=== PATIENT | male | born 1965 | race Caucasian/White ===

== ENCOUNTER 2018-02-25 09:56 | Emergency (ER) | payer OTHER, SELFPAY ==
[2018-02-25 09:57] VITALS: BP 134/52; PULSE 91; RESP 18; TEMP 36.4; O2SAT 96; BMI 26.7
[2018-02-25 10:05] VITALS: O2SAT 96
--- NOTE | 2018-02-25 10:30 | RAD_ITS ---
STUDY: X-RAY - LEFT KNEE REASON FOR EXAM: Male, 52 years old. Status post fall TECHNIQUE: 4 view(s) of the knee. COMPARISON: None. FINDINGS: Comminuted lateral tibial plateau fracture is noted. No dislocation. Joint effusion is noted. RAD/Knee 4 or More Views IMPRESSION: As above Electronically Signed: Miguel Alexandra DO at 11:26 EST Tel , Service support ,
--- NOTE | 2018-02-25 10:42 | RAD_ITS ---
STUDY: X-RAY - LEFT TIBIA AND FIBULA REASON FOR EXAM: Male, 52 years old. Status post fall TECHNIQUE: 4 view(s) of the tibia and fibula were obtained. COMPARISON: None. FINDINGS: Nondisplaced and mildly comminuted lateral tibial plateau fracture. Remainder of the tibia and fibula are within normal limits RAD/Tibia & Fibula 2 Views IMPRESSION: As above Electronically Signed: Miguel Alexandra DO at 11:27 EST Tel , Service support ,
[2018-02-25 12:16] VITALS: BP 137/84; PULSE 71; RESP 16; O2SAT 98
--- NOTE | 2018-02-25 12:16 | ED.DCSUM_ITS ---
- ER Visit Summary Date of Service: 02/25/18 Chief Complaint: Fall History of Present Illness: The patient is a [address] Gorge Dixon III. He reports that he slipped in the mud and his left leg went laterally and his body went right. He states his left leg popped. His pain is 3 out of 10 at rest and 10 out of 10 with standing. Reports she is unable to put any weight on this leg. He denies any other injury. No blow to the head or loss of consciousness. No neck, back, shoulder, wrist, or hip pain. He is not on blood thinners. Physical Examination: Vitals: Stable. Afebrile. Neck: No vertebral tenderness. Full ROM without difficulty. Cleared by NEXUS criteria. Back: No vertebral tenderness. General: A&O x 3. NAD. Cardiovascular exam: Regular rate and rhythm, no murmur, rub or gallop. Respiratory exam: Chest nontender. No crepitus. Clear to auscultation bila terally. No wheezes or stridor. Abdominal exam: Soft, nontender, nondistended, normal bowel sounds. No pain in RUQ or LUQ specifically. No peritoneal signs. Extremity: Moderate tenderness palpation over the head of the fibula. Severe pain with any range of motion of his knee. Is a 2+ dorsalis pedis pulse. Test Results: Left tib-fib and knee x-rays show a comminuted depressed lateral tibial plateau fracture. Emergency Department Course and Treatment: Patient was treated with [place] and naproxen. He was placed in a knee immobilizer and on crutches. Treatment Plan: I discussed with the patient and his that this will require surgery. They do not want to see an orthopedic surgeon in [place]. His has contacts at [facility] with orthopedics. She is trying to reach them now. Patient will be discharged with [place]. Instructed to follow-up with orthopedic surgeon within 5 days for another exam. He is to be strictly nonweightbearing. Return to the emergency department for any worsening symptoms. Disposition: To home in improved and stable condition. Impression: 1. Fall. 2. Left lateral tibial plateau fracture, depressed. This note was generated with [employer] dictation software. It may contain incorrect words, spelling, and punctuation that were not noted in review of the chart prior to signing ED Disposition - Plan for ED Patient: Disposition: Home or Assisted Living Chief Complaint: Lower Extremity Injury Instructions: ED Fx Knee Prescriptions: Hydrocodone Bitart/Apap 5-325 [[place] 5MG-325MG] 1 tablet PO Q6H PRN PRN 5 Days #20 tablet PRN Reason: Pain Referrals: Gorge Dixon III, MD [Primary Care Provider] - Additional Instructions: Follow up with your Orthopedic Surgeon as soon as possible.
[2018-02-25] MEDS: HYDROcodone Bitartrate/Apap 5/325 Tablet PO (12:21)
[2018-02-25] MEDS: Ibuprofen 600 MG Tablet PO (12:22)
[2018-02-25 12:24] VITALS: BP 137/84; PULSE 66; RESP 16; O2SAT 98
--- NOTE | 2018-02-25 13:32 | ED.RN ---
PT D/C DELAYED DUE TO PT WANTING TO FILL WORKERS COMPWeston EVANGELISTA. [id number]
== END 2018-02-25 13:54 | disposition home or self-care (01) ==
PROVIDERS: Emergency Provider Emergency Medicine; Family Provider Family Medicine; PCP Family Medicine
DX: S82.142A Displaced bicondylar fracture of left tibia, initial encounter for closed fracture (principal); W01.0XXA Fall on same level from slipping, tripping and stumbling without subsequent striking against object, initial encounter; Y93.9 Activity, unspecified; Y92.9 Unspecified place or not applicable
CPT/HCPCS: 73564; 73590; 99285

== ENCOUNTER 2018-04-17 09:52 | Emergency (ER) | payer OTHER, SELFPAY ==
[2018-04-17 09:54] VITALS: BP 97/65; PULSE 116; RESP 17; TEMP 36.8; O2SAT 100; BMI 24.1
--- NOTE | 2018-04-17 10:06 | VDLE_ITS ---
Reason For Study: LLE pain and swelling RIGHT LEFT CFV is compressible, spontaneous, phasic, GSV is normal. competent and demonstrates normal CFV is compressible, spontaneous, phasic, augmentation. competent, and demonstrates normal Procedure augmentation. Exam performed portable in ED. Prox FV is compressible. The exam was diagnostic. MID/Distal FV, POP V, T/P Trunk, PTV and PER A preliminary report was called and/or faxed V are DILATED and NON-COMPRESSIBLE. to Dr. Saenz & ED. Interpretation Summary Acute deep venous thrombosis left mid to distal femoral vein, popliteal vein, tibioperoneal trunk, posterior tibial vein, and peroneal vein. Patent and compressible left great saphenous vein. Normal flow patterns right common femoral vein. Ordering Physician: Marvin Rowell Referring Physician: Gorge Dixon Performed By: Yuko Moseley, SAMAN, RVT
--- NOTE | 2018-04-17 10:09 | ED.VISSUMM ---
- ER Visit Summary Date of Service: 04/17/18 Chief Complaint: Left knee pain History of Present Illness: The patient is a 52 M presents to the emergency department left knee pain. The patient had ORIF of a tibial plateau fracture done 7 weeks ago. The surgery was performed at [facility] by Dr. Bentley. The patient has been doing therapy and recovering without issue. He states that 4 days ago, when he was sleeping, he accidentally twisted his left leg. Since then, he had severe pain and swelling in the posterior aspect of the leg. He states even put pressure on it causes significant pain. He did see his orthopedic surgeon in the office after he had injured it. He states that he had negative x-rays. Since then, the pain is worsened. He states that even putting any attempted extension on the knee causes severe pain. He denies any fevers or chills. He denies any systemic symptoms. Physical Examination: Exam is relatively unremarkable. The patient does have asymmetric edema of the left lower extremity. His pulses are normal. He is tender in the posterior aspect of the knee. His incision is clean, dry, intact. There is no erythema. Test Results: [] Emergency Department Course and Treatment: The patient presents with asymmetric edema of the left lower extremity. He did have recent surgery. His pulses were normal. I did review his x-rays through the [facility] from 3 days ago. These are unremarkable. With his pain, I did want to rule out DVT. Patient underwent ultrasound which does show extensive DVT in the lower extremity. I do feel that the patient is safe for outpatient therapy. He declined any analgesics. His pulses are normal. I discussed the patient with orthopedics at [facility], Dr. Tolentino who is comfortable with Eliquis. I also discussed the patient with Dr. Jacobo, covering for Dr. Moreira the patient's primary care. The patient will be started on Eliquis. He is given his first dose here. He was counseled concerning symptoms and reasons to return. He has had no chest pain or shortness of breath. Patient be discharged home. Treatment Plan: [] Disposition: Discharge Impression: 1. Left lower extremity DVT This note was generated with [employer] software. It may contain incorrect words, spelling, and punctuation that were not noted in review of the chart prior to signing ED Disposition - Plan for ED Patient: Chief Complaint: Lower Extremity Injury Instructions: ED DVT Prescriptions: Apixaban [Eliquis] 5 mg PO BID #74 tab Referrals: Gorge Dixon III, MD [Primary Care Provider] -
[2018-04-17] MEDS: APIXABAN 5 MG TABLET 10 MG PO (11:44)
== END 2018-04-17 11:48 | disposition home or self-care (01) ==
PROVIDERS: Emergency Provider Emergency Medicine; Family Provider Family Medicine; PCP Family Medicine
DX: I82.412 Acute embolism and thrombosis of left femoral vein (principal); I82.432 Acute embolism and thrombosis of left popliteal vein; I82.442 Acute embolism and thrombosis of left tibial vein; I82.492 Acute embolism and thrombosis of other specified deep vein of left lower extremity; X50.1XXA Overexertion from prolonged static or awkward postures, initial encounter; Y93.9 Activity, unspecified; Y92.9 Unspecified place or not applicable; Z98.890 Other specified postprocedural states
CPT/HCPCS: 93971; 99283

== ENCOUNTER 2018-08-26 09:39 | Emergency (ER) | payer OTHER, SELFPAY ==
[2018-08-26 09:40] VITALS: BP 118/87; PULSE 115; RESP 16; TEMP 36.9; O2SAT 97; BMI 24.1
--- NOTE | 2018-08-26 09:51 | VDLE_ITS ---
Reason For Study: Swelling RIGHT LEFT CFV is compressible, spontaneous, phasic, GSV is normal. competent and demonstrates normal CFV is compressible, spontaneous, phasic, augmentation. competent, and demonstrates normal Procedure augmentation. Exam performed portable in ED. Prox to Mid FV is compressible, spontaneous, A preliminary report was called and/or faxed phasic, competent, and demonstrates normal to ED Doctor. augmentation. Acute deep vein thrombosis is noted in the left FV Distal, POP V, T/P Trunk, PER V, PTV. Dilated and non-compressible. Interpretation Summary Acute deep venous thrombosis left distal femoral, popliteal, tibioperoneal trunk, peroneal, and posterior tibial veins. Patent and compressible left great saphenous vein. Normal flow patterns right common femoral vein. Ordering Physician: Mayela Romano Referring Physician: EDITA Dixon M.D. Performed By: Yamini Quinonez RVT
--- NOTE | 2018-08-26 10:11 | ED.VISSUMM ---
- ER Visit Summary Date of Service: 08/26/18 Chief Complaint: [Left leg discomfort with concern for DVT History of Present Illness: The patient is a 53 M [presents to the emergency department with discomfort in his left leg for several days. Patient states he also just does not feel well and that he just does not feel he has much energy. Patient was taken off of Eliquis early in July after being on it for 3 months related to a left leg DVT. Patient developed a DVT after he had surgery to repair a left tibial plateau fracture in April of this year. Patient currently rehabbing his left leg. Patient states that he feels similarly to when he was diagnosed with his blood clot. He denies any chest pain. Patient has some mild shortness of breath but he is not sure if he is just more fatigued rather than short of breath.] Physical Examination: [HEENT-PERRLA, EOMI. Cranial nerves II through XII grossly intact. TMs clear. Mucous membranes moist. No adenopathy. Cardiovascular-regular rate and rhythm without murmur or ectopy Lungs-clear to auscultation, chest wall stable without crepitus or subcu emphysema Abdomen-normoactive bowel sounds, soft, nontender, no rebound or rigidity, no peritoneal signs. Extremities-intact ?4, normal range of motion, normal pulses, atraumatic. Left leg-patient has some increased varicosities of the left leg compared to the right. There is some mild edema of the left leg compared to the right. No erythema or warmth noted. Patient has normal femoral, popliteal, dorsal pedal, and posterior tibial pulses. Normal cap refill. No ropes or cords palpated. Negative Homans sign.] Test Results: ['s duplex of the left leg was obtained which showed DVT that appears acute of the distal femoral vein and down into the calf. Patient had a CBC with differential and chemistries obtained were unremarkable. A CT of the chest was obtained given the tachycardia and the complaint of some dyspnea. Patient had no evidence of PE or dissection. Patient was noted to have a small right pleural effusion and a nodule in the right lower lobe for which they recommended radiologic follow-up. The nodule measured 2 x 1.5 cm.] Emergency Department Course and Treatment: [Patient was given Eliquis in the emergency department and will be given a prescription for Eliquis] Treatment Plan: [Patient will be given a prescription for Eliquis and advised to follow-up with primary care physician within next 5 to 7 days. Patient advised to return if chest pain, increasing shortness of breath, or condition worsen anyway.] Disposition: [Discharged home stable condition] Impression: [Left lower extremity DVT] This note was generated with [employer] dictation software. It may contain incorrect words, spelling, and punctuation that were not noted in review of the chart prior to signing ED Disposition - Plan for ED Patient: Referrals: Gorge Dixon III, MD [Primary Care Provider] -
--- NOTE | 2018-08-26 10:27 | CT_ITS ---
STUDY: CTA CHEST REASON FOR EXAM: Male, 53 years old. General fatigue. No deep venous thrombosis. RADIATION DOSAGE (If Supplied By Facility): CTDIvol = ( 10.91 ) mGy, DLP = ( 536.50 ) mGycm TECHNIQUE: The examination was performed with the intravenous administration of 100 IV Isovue 370. Post-processing of the angiographic images was performed, with multiplanar reformation and 3D reconstruction. Individualized dose optimization techniques were used for this CT. COMPARISON: None. FINDINGS: Normal enhancement of the main pulmonary artery and right and left pulmonary arteries. Normal enhancement of the bilateral peripheral pulmonary arteries. There is no demonstrated pulmonary embolism. Normal thoracic aorta and visualized great vessels. There is no demonstrated aortic dissection. Normal heart and pericardium. Normal mediastinum. Normal hilar regions. Normal visualized trachea and bronchi. The lungs are well expanded. There is a small right pleural effusion with right basilar atelectasis. There is evidence of a 2 cm x 1.5 cm pleural-based nodule in the right lower lobe. This may represent round atelectasis. Radiographic follow-up is recommended. Normal chest wall structures. There are degenerative changes of thoracic spine. 1 cm cyst in the anterior aspect of the right lobe of the liver. CT/CTA Chest W/WO Contrast IMPRESSION: Small right pleural effusion with underlying atelectasis. 2 cm x 1.5 cm focal based nodule in the posterior right lower lobe. Radiographic follow-up is recommended. Electronically Signed: Costa Gallegos, at 11:34 EDT , Service support ,
[2018-08-26 11:01] LABS: Anion Gap 5 (5-15); BUN 12 mg/dL (7-18); BUN/Creat Ratio 11.1 RATIO (10-20); Chloride 108 mmol/L (98-107); Creatinine, Serum 1.08 mg/dL (0.70-1.30); EST Glomerular Filtration Rate 75 mL/min (>60); Est Glom Filt Rate - Afr Amer 91 mL/min (>60); Estimated Creatinine Clearance 104.94 ml/min; Glucose 93 mg/dL (74-106); Potassium 4.5 mmol/L (3.5-5.1); Sodium Level 141 mmol/L (136-145)
[2018-08-26 11:14] LABS: Absolute Lymphocyte Count 1.33 X10^3/ul (0.83-4.51); Absolute Neutrophil Count 4.9 X10^3/uL (2.0-7.7); Basophil# 0.02 X10^3/uL; Basophil% 0.3 % (0-1); Eosinophil# 0.06 X10^3/uL; Eosinophils% 0.8 % (0-5); Hematocrit 42.5 % (40-54); Hemoglobin 14.3 g/dl (13.0-16.5); Lymphocyte # 1.33 X10^3/ul (4.0); Lymphocyte % 18.8 % (19-41); Mean Corp Hgb Conc 33.6 g/gl (32-36); Mean Corpuscular Hgb 28.7 pg (27.0-32.0); Mean Corpuscular Volume 85.2 fL (80-94); Monocyte# 0.78 X10^3/uL; Neutrophil # 4.88 X10^3/uL (2.7-7.7); Platelet Count 212 K/mm3 (150-450); RBC Distribution Width CV 15.3 % (11.6-14.6); RBC Distribution Width SD 47.9 fl (35.1-43.9); Red Blood Count 4.99 M/mm3 (4.6-6.2); White Blood Count 7.1 K/mm3 (4.4-11.0)
[2018-08-26 11:18] LABS: POSITIVE COUNT NO; POSITIVE DIFFERENTIAL NO; POSITIVE MORPHOLOGY NO
--- NOTE | 2018-08-26 11:42 | ED.RN ---
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 ORDER FOR DRUG CHANGED TO 5MG INSTEAD OF 10MG.
[2018-08-26 11:43] VITALS: BP 128/72; PULSE 82; RESP 16
[2018-08-26] MEDS: APIXABAN 5 MG TABLET PO (11:43)
--- NOTE | 2018-08-26 12:02 | ED.DEP ---
ED Disposition - Plan for ED Patient: Instructions: ED DVT Prescriptions: Apixaban [Eliquis] 5 mg PO BID #74 tab Referrals: Gorge Dixon III, MD [Primary Care Provider] - 5-7 Days
== END 2018-08-26 12:07 | disposition home or self-care (01) ==
PROVIDERS: Emergency Provider Emergency Medicine; Family Provider Family Medicine; PCP Family Medicine
DX: I82.412 Acute embolism and thrombosis of left femoral vein (principal); I82.432 Acute embolism and thrombosis of left popliteal vein; I82.442 Acute embolism and thrombosis of left tibial vein; I82.890 Acute embolism and thrombosis of other specified veins; I83.92 Asymptomatic varicose veins of left lower extremity; J90 Pleural effusion, not elsewhere classified; R91.1 Solitary pulmonary nodule; Z86.718 Personal history of other venous thrombosis and embolism
CPT/HCPCS: 71275; 80048; 85025; 93971; 99284; Q9967; A4216

== ENCOUNTER 2020-09-02 11:54 | Inpatient (IN) | payer OTHER, SELFPAY ==
[2020-09-02] VITALS (27 sets, daily range): BP systolic 92–157; BP diastolic 48–93; PULSE 87–140; RESP 18–26; TEMP 36.4–37; O2SAT 91–100; BMI 26.4; BMI 25.0
--- NOTE | 2020-09-02 12:53 | EKG12_ITS ---
Test Reason : SOB Blood Pressure : / mmHG Vent. Rate : 138 BPM Atrial Rate : 352 BPM P-R Int : 000 ms QRS Dur : 100 ms QT Int : 330 ms P-R-T Axes : 263 -44 151 degrees QTc Int : 499 ms Atrial flutter with variable A-V block Left axis deviation Abnormal ECG Confirmed by MEDINA DURAN, GILLIAN ([id number]), department helper ÁLVARO SCHMITT ([id number]) on 09/03/2020 10:06:34 AM Referred By: ALEX Confirmed By:GILLIAN HANEY MD
--- NOTE | 2020-09-02 12:55 | EX.ED.DYSGE1 ---
HPI History of Present Illness Chief Complaint: Fatigue Narrative Narrative: 55-year-old male presenting with generalized weakness and fatigue. Patient states he started having symptoms of COVID-19 about 11 days ago. He was diagnosed on the sixth at the [facility] urgent care. He states that he has decreased p.o. intake with some nausea. He denies any chest pain has mild shortness of breath. He no longer has a fever. He lost his sense of taste. He states I am just wiped out. He states his only medical history is history of blood clots. He is on Eliquis for this. He denies chest pain. [facility] Medical History DVT (deep venous thrombosis) Home Medications apixaban 5 mg PO BID #74 tab 08/26/18 [Rx Last Taken 09/02/20] Allergy/AdvReac Type Severity Reaction Status Date / Time No Known Allergies Allergy Verified 09/02/20 12:00 Social History Smoking Status: Never smoker ROS ROS ED Constitutional Constitutional ED: Reports chills, fever(s) and other Details: Generalized weakness ; Denies sweats Eyes Eyes: Denies blurry vision or change in vision ENT ENT ED: Denies ear pain, rhinorrhea or sore throat Cardiovascular Cardiovascular: Reports racing heartbeat; Denies chest pain or palpitations Respiratory/Chest Respiratory/Chest: Reports dyspnea and dyspnea on exertion; Denies cough or sputum Gastrointestinal Gastrointestinal: Reports nausea; Denies abdominal pain, constipation, diarrhea or vomiting Genitourinary Genitourinary ED: Denies dysuria, hematuria or urinary frequency Musculoskeletal Musculoskeletal: Reports myalgias; Denies arthralgias or neck pain Integumentary Denies abscess, Abrasions or rash Neurologic Neurologic: Denies headache(s), paresthesias or weakness Psychiatric Psychiatric: Denies anxiety, depression, suicidal ideation or suicidal thoughts Endocrine Endocrinology: Denies polydipsia or polyuria EXAM Physical Exam Const Vital Signs: 09/02/20 11:57 09/02/20 12:01 09/02/20 13:34 Temperature 97.6 F L 98.1 F Temperature Source Oral Oral Pulse Rate 140 H 140 H 133 H Respiratory Rate 26 H 21 H 22 H Blood Pressure 141/83 H 133/76 H 105/69 Blood Pressure Mean 102 95 81 Pulse Ox 97 96 99 Oxygen Delivery Method Room Air Room Air Room Air 09/02/20 13:36 09/02/20 14:52 Temperature 98.1 F 98.1 F Temperature Source Oral Oral Pulse Rate 131 H Respiratory Rate 20 H Blood Pressure 126/81 H Blood Pressure Mean 96 Pulse Ox 96 Oxygen Delivery Method Room Air General Appearance ED: Negative for pallor HEENT Reports normocephalic, head/scalp atraumatic and dry mucous membranes Negative for trauma Mouth ED: Yes dry mucous membranes Mouth: dry mucous membranes Eyes PERRL and EOMs intact bilaterally General Eye ED: Negative for scleral icterus Neck no lymphadenopathy and supple Chest Wall inspection of chest normal and palpation of chest normal Resp normal respiratory effort Effort and Inspection: Negative for retractions Auscultation: diminished lung sounds bilateral and diffuse; Negative for wheezes Cardio regular rate and regular rhythm GI normal to inspection, nondistended, normoactive bowel sounds and non-distended Auscultation: normoactive bowel sounds Palpation: soft Narrative: Deferred Back/Spine no CVA tenderness General Back: Negative for CVA tenderness Cervical Spine: Negative for cervical spine tenderness Extremity normal to inspection General Extremety ED: Yes edema and tenderness General Extremity: edema Neuro oriented x3 and CN's II-XII intact bilaterally Sensorium / Orientation: alert Motor Exam: strength 5/5 throughout Psych mental status grossly normal Attitude: No agitated Skin no rashes or lesions noted and no wounds General Skin Exam: Negative for jaundice or pallor MDM MDM MDM Narrative Medical decision making narrative: Patient presenting with Covid symptoms he states for the last 11 days. He was diagnosed about 7 days ago. He states that he is been doing poorly at home. He does not complains of significant shortness of breath or chest pain. When I initially examined the patient he was noted to be tachycardic in the 130s and hypoxic into the 80s and states that he had just walked a couple of feet to the counter patient's EKG appears to be irregular and tachycardic at 138 and appears to be consistent with atrial fibrillation as interpreted by myself. Patient states he has no history of this. Chest x-ray is interpreted by myself shows bilateral interstitial infiltrates and radiology does agree. CTA as interpreted by radiology shows bilateral groundglass opacities consistent with COVID-19. Patient's CBC does not show leukocytosis. INR 1.6, PT 18.3, APTT. 35.1 renal function is normal although there is some prerenal azotemia present. He was given 500 cc of IV fluids. Lactic acid is 1.8. Troponin is negative. Procalcitonin 0.8. UA shows small leukocyte esterase and rare bacteria. This does not appear to be contaminated. For patient's heart rhythm he was given Cardizem 20 mg IV. He is already anticoagulated. Discussed patient with hospitalist given significant tachycardia and hypoxia. She recommended culturing the urine which has been done. Patient admitted in stabilized condition. Impression: 1. COVID-19 pneumonia 2. Hypoxia 3. New onset A. fib Lab Data Labs: Laboratory Results - last 24 hr 09/02/20 09/02/20 09/02/20 13:25 13:25 13:25 WBC 8.3 RBC 5.41 Hgb 16.0 Hct 46.4 MCV 85.8 MCH 29.6 MCHC 34.5 RDW Std Deviation 38.7 RDW Coeff of Ewa 12.4 Plt Count 284 MPV 9.7 Immature Gran % (Auto) 0.700 Neut % (Auto) 81.2 H Lymph % (Auto) 13.0 L Jackson % (Auto) 4.6 Eos % (Auto) 0.0 Baso % (Auto) 0.5 Absolute Neuts (auto) 6.7 Absolute Lymphs (auto) 1.08 Nucleated RBC % 0 PT 18.3 H INR 1.6 APTT 35.1 Sodium 139 Potassium 3.4 L Chloride 106 Carbon Dioxide 23.0 Anion Gap 10 BUN 20 H Creatinine 0.95 Estim Creat Clear Calc 116.49 Est GFR (MDRD) Af Amer 105 Est GFR (MDRD) Non-Af 87 BUN/Creatinine Ratio 21.1 H Glucose 92 Lactic Acid Calcium 8.5 Total Bilirubin 0.70 AST 26 ALT 22 Alkaline Phosphatase 81 Troponin I < 0.015 Total Protein 7.1 Albumin 2.8 L Globulin 4.3 H Albumin/Globulin Ratio 0.7 L Procalcitonin Urine Color Urine Clarity Urine pH Ur Specific [place] Urine Protein Urine Glucose (UA) Urine Ketones Urine Occult Blood Urine Nitrite Urine Bilirubin Urine Urobilinogen Ur Leukocyte Esterase Urine RBC Urine WBC Ur Squamous Epith Cells Urine Bacteria Urine Mucus 0509/02/20 09/02/20 13:25 13:25 14:50 WBC RBC Hgb Hct MCV MCH MCHC RDW Std Deviation RDW Coeff of Ewa Plt Count MPV Immature Gran % (Auto) Neut % (Auto) Lymph % (Auto) Jackson % (Auto) Eos % (Auto) Baso % (Auto) Absolute Neuts (auto) Absolute Lymphs (auto) Nucleated RBC % PT INR APTT Sodium Potassium Chloride Carbon Dioxide Anion Gap BUN Creatinine Estim Creat Clear Calc Est GFR (MDRD) Af Amer Est GFR (MDRD) Non-Af BUN/Creatinine Ratio Glucose Lactic Acid 1.8 Calcium Total Bilirubin AST ALT Alkaline Phosphatase Troponin I Total Protein Albumin Globulin Albumin/Globulin Ratio Procalcitonin 0.08 Urine Color Yellow Urine Clarity Sl. Cloudy Urine pH 6.0 Ur Specific [place] 1.015 Urine Protein 30 H Urine Glucose (UA) Normal Urine Ketones 150 A* Urine Occult Blood 25 H Urine Nitrite Negative Urine Bilirubin 1 H Urine Urobilinogen 4 H Ur Leukocyte Esterase 25 H Urine RBC 0-5 SEEN Urine WBC 0-5 SEEN Ur Squamous Epith Cells 0 SEEN Urine Bacteria RARE Urine Mucus 0 SEEN Radiography Diagnostic Testing: Radiology Impression Chest X-Ray 09/02/20 13:10 IMPRESSION: Subtle patchy interstitial opacifications in the lower halves of both lung roblero. Differential as described above. Small left pleural effusion Electronically Signed: Evaristo Cortez MD at 13:21 EDT , Service support , Chest CTA 09/02/20 14:22 IMPRESSION: 1. No central or segmental pulmonary embolism. 2. Multilobar reticular and groundglass opacities with imaging features commonly reported with COVID pneumonia. Electronically Signed: Sky Bales MD ([place]) at 14:59 EDT , Service support , Discharge Plan Triage Chief Complaint: Fatigue ED Provider: Sukhwinder Alvarez Dx/Rx/DC Orders Primary Care Provider: Gorge Dixon III
--- NOTE | 2020-09-02 13:10 | RAD_ITS ---
STUDY: X-RAY CHEST REASON FOR EXAM: Male, 55 years old. Worsening shortness of breath TECHNIQUE: Single AP portable view of the chest. COMPARISON: None. FINDINGS: EKG leads overlie the chest Lungs are expanded with subtle patchy opacifications in both lower lung roblero. This could be seen with pneumonitis, bronchitis, or Covid pneumonia could have this appearance. There is a small left pleural effusion. Normal size heart. Normal mediastinum and felicity. Normal visualized pulmonary arteries. Normal visualized aortic arch and descending thoracic aorta. Normal visualized thoracic spine. Normal visualized ribs, clavicles, and shoulders. There is no demonstrated abnormality of the visualized soft tissue structures of the upper abdomen. RAD/Chest 1 View (Portable) IMPRESSION: Subtle patchy interstitial opacifications in the lower halves of both lung roblero. Differential as described above. Small left pleural effusion Electronically Signed: Evaristo Cortez MD at 13:21 EDT , Service support ,
[2020-09-02 13:55] LABS: International Normalized Ratio 1.6; Prothrombin Time (Protime)PT. 18.3 SECONDS (11.7-14.9)
[2020-09-02 13:56] LABS: Partial Thromboplast Time 35.1 Seconds (24.1-36.2)
[2020-09-02 13:57] LABS: Absolute Lymphocyte Count 1.08 X10^3/uL (0.83-4.51); Absolute Neutrophil Count 6.7 X10^3/uL (2.0-7.7); Basophil# 0.04 X10^3/uL; Basophil% 0.5 % (0-1); Hematocrit 46.4 % (40-54); Lymphocyte # 1.08 X10^3/ul (0.83-4.51); Mean Corp Hgb Conc 34.5 g/dL (32-36); Mean Corpuscular Hgb 29.6 pg (27.0-32.0); Mean Corpuscular Volume 85.8 fL (80-94); Mean Platelet Vol. 9.7 fl (6.2-12.0); Monocyte# 0.38 X10^3/uL; Monocyte% 4.6 % (0-10); NRBC Flagged by Analyzer 0 % (0-5); Neutrophil # 6.72 X10^3/uL (2.7-7.7); Neutrophil % 81.2 % (47-70); POSITIVE MORPHOLOGY YES; Platelet Count 284 K/mm3 (150-450); RBC Distribution Width CV 12.4 % (11.6-14.6); RBC Distribution Width SD 38.7 fl (35.1-43.9); Red Blood Count 5.41 M/mm3 (4.6-6.2); White Blood Count 8.3 K/mm3 (4.4-11.0)
[2020-09-02 14:04] LABS: ALB/GLOB Ratio 0.7 RATIO (0.9-2.4); AST(SGOT) 26 U/L (15-37); Alanine Aminotransfer ALT/SGPT 22 U/L (16-61); Albumin, Serum 2.8 g/dL (3.2-5.0); Alkaline Phosphatase 81 U/L (45-117); Anion Gap 10 (5-15); BUN 20 mg/dL (7-18); BUN/Creat Ratio 21.1 RATIO (10-20); Calcium,Total 8.5 mg/dL (8.5-10.1); Chloride 106 mmol/L (98-107); Creatinine, Serum 0.95 mg/dL (0.70-1.30); EST Glomerular Filtration Rate 87 mL/min (>60); Est Glom Filt Rate - Afr Amer 105 mL/min (>60); Estimated Creatinine Clearance 116.49 ml/min; Globulin 4.3 g/dL (2.2-4.2); Glucose 92 mg/dL (74-106); Potassium 3.4 mmol/L (3.5-5.1); Protein, Total 7.1 g/dL (6.4-8.2); Sodium Level 139 mmol/L (136-145)
[2020-09-02 14:09] LABS: Lactic Acid 1.8 mmol/L (0.4-1.9)
[2020-09-02 14:20] LABS: Differential Indicated SCAN CRITERIA MET
--- NOTE | 2020-09-02 14:22 | CT_ITS ---
STUDY: CTA CHEST REASON FOR EXAM: Male, 55 years old. dyspnea RADIATION DOSAGE (If Supplied By Facility): CTDIvol = ( 13.63 ) mGy, DLP = ( 523.75 ) mGycm TECHNIQUE: The examination was performed with the intravenous administration of IV 100mL Isovue-370. Post-processing of the angiographic images was performed, with multiplanar reformation and 3D reconstruction. Individualized dose optimization techniques were used for this CT. COMPARISON: Chest x-ray from earlier today FINDINGS: Normal enhancement of the main pulmonary artery and right and left pulmonary arteries. Normal enhancement of the bilateral peripheral pulmonary arteries. There is no demonstrated pulmonary embolism. Normal thoracic aorta and visualized great vessels. There is no demonstrated aortic dissection. Normal heart and pericardium. Normal mediastinum. Normal hilar regions. Normal visualized trachea and bronchi. Localized reticulation and groundglass opacities in the posterior bilateral upper lobes, right middle lobe, lingula and bilateral lower lobes. No cavitating process. Mild atelectasis in the posterior costophrenic angles. No sizable effusion. Normal pleura. Normal chest wall structures. Normal osseous structures. Normal visualized upper abdomen. CT/CTA Chest W/WO Contrast IMPRESSION: 1. No central or segmental pulmonary embolism. 2. Multilobar reticular and groundglass opacities with imaging features commonly reported with COVID pneumonia. Electronically Signed: Sky Bales MD (Brooks) at 14:59 EDT , Service support ,
[2020-09-02 14:27] LABS: Procalcitonin 0.08 ng/mL (0.00-0.09)
[2020-09-02 15:04] LABS: Mucous, Urine 0 SEEN /hpf (<or=2+); Squamous Epithelial Cells - UA 0 SEEN /hpf (0-5)
--- NOTE | 2020-09-02 15:10 | HP.PCM.HOS_ITS ---
HPI - General General Date of Admission: 09/02/20 HPI Narrative JENNY GUERRA, is a 55 M who presents with a complaint of fatigue. He was diagnosed with covid 11 days ago, and says he has been feeling weak since then. He feels very lethargic and is unable to do much for himself. He denies any fever but admits to a cough which is nonproductive as well as shortness of breath which he thinks is better than previously. He denies any nausea vomiting but admits to anorexia and states he has not eaten much over the last few days but has been trying to drink water and keep hydrated. Review of systems was otherwise negative. Vitals showed Temp of 98.1F, with MS of 131, RR of 20 and sats of 96% on room air. He was tachycardic and tachypneic. CTA of the chest was negative for PE but showed bilateral opacities. His HR went up to the 140s when getting up. EKG showed probable afib, but when he lay back down, HR went down. - CBC was unremarkable, and BMP was also uremarkable. He is being admitted to be managed for debility and hypoxia due to covid 19 infection as well as new onset afib. [facility] Medical History DVT (deep venous thrombosis) Left tibial fracture Home Medications apixaban 5 mg PO BID #74 tab 08/26/18 [Rx Last Taken 09/02/20] Allergy/AdvReac Type Severity Reaction Status Date / Time No Known Allergies Allergy Verified 09/02/20 12:00 Surgical History (Updated 09/02/20 @ 16:29 by Yamini Fuentes) History of tonsillectomy and adenoidectomy Social History Smoking Status: Never smoker ROS Constitutional Constitutional: Reports anorexia, fatigue, malaise and weakness ENT HEENT: Denies abnormal hearing, dysphagia, nasal discharge or sore throat Cardiovascular Cardiovascular: Reports dyspnea on exertion, palpitations and rapid heart rate; Denies chest pain, lightheadedness, orthopnea or paroxysmal nocturnal dyspnea Respiratory/Chest Respiratory/Chest: Reports cough, shortness of breath at rest and shortness of breath with exertion; Denies productive cough Gastrointestinal Gastrointestinal: Reports abdominal pain; Denies constipation, diarrhea, dyspepsia, loose stools, nausea or vomiting Genitourinary Genitourinary: Denies burning urination or difficulty urinating Musculoskeletal Musculoskeletal: Denies arthralgias Psychiatric Psychiatric: Denies anxiety Endocrine Endocrinology: Denies change in body appearance Hematologic/Lymphatic Hematologic/Lymphatic: Denies anemia Vital Signs Vital Signs Vital Signs: 09/02/20 11:57 09/02/20 12:01 09/02/20 13:34 Temperature 97.6 F L 98.1 F Temperature Source Oral Oral Pulse Rate 140 H 140 H 133 H Respiratory Rate 26 H 21 H 22 H Blood Pressure 141/83 H 133/76 H 105/69 Blood Pressure Mean 102 95 81 Pulse Ox 97 96 99 Oxygen Delivery Method Room Air Room Air Room Air 09/02/20 13:36 09/02/20 14:52 Temperature 98.1 F 98.1 F Temperature Source Oral Oral Pulse Rate 131 H Respiratory Rate 20 H Blood Pressure 126/81 H Blood Pressure Mean 96 Pulse Ox 96 Oxygen Delivery Method Room Air Physical Exam Const alert and oriented x3 Orientation / Consciousness: lethargic HEENT normocephalic, head/scalp atraumatic and hearing grossly normal bilaterally; Negative for moist oral mucous membranes HEENT Narrative: dry mucosal membrane Eyes PERRL, EOMs intact bilaterally and conjunctivae normal Neck No no lymphadenopathy Resp No normal respiratory effort Resp Narrative: tachypneic, bilateral crackles. Cardio Negative for regular rate or regular rhythm Cardio Narrative: tachycardic, afib. GI normal to inspection, nondistended, normoactive bowel sounds, soft to palpation, non-tender and non-distended Extremity normal to inspection, full ROM and no clubbing, cyanosis or edema Peripheral Pulses: Yes pulses 2+ throughout Skin no rashes or lesions noted Neuro oriented x3 Sensorium / Orientation: alert Psych affect normal Lab / Micro Data Result Diagrams: 09/03/20 03:40 09/03/20 03:40 Labs: Laboratory Results - last 24 hr 09/02/20 09/02/20 09/02/20 13:25 13:25 13:25 WBC 8.3 RBC 5.41 Hgb 16.0 Hct 46.4 MCV 85.8 MCH 29.6 MCHC 34.5 RDW Std Deviation 38.7 RDW Coeff of Ewa 12.4 Plt Count 284 MPV 9.7 Immature Gran % (Auto) 0.700 Neut % (Auto) 81.2 H Lymph % (Auto) 13.0 L [place] % (Auto) 4.6 Eos % (Auto) 0.0 Baso % (Auto) 0.5 Absolute Neuts (auto) 6.7 Absolute Lymphs (auto) 1.08 Nucleated RBC % 0 PT 18.3 H INR 1.6 APTT 35.1 Sodium 139 Potassium 3.4 L Chloride 106 Carbon Dioxide 23.0 Anion Gap 10 BUN 20 H Creatinine 0.95 Estim Creat Clear Calc 116.49 Est GFR (MDRD) Af Amer 105 Est GFR (MDRD) Non-Af 87 BUN/Creatinine Ratio 21.1 H Glucose 92 Lactic Acid Calcium 8.5 Total Bilirubin 0.70 AST 26 ALT 22 Alkaline Phosphatase 81 Troponin I < 0.015 Total Protein 7.1 Albumin 2.8 L Globulin 4.3 H Albumin/Globulin Ratio 0.7 L Procalcitonin 09/02/20 09/02/20 13:25 13:25 WBC RBC Hgb Hct MCV MCH MCHC RDW Std Deviation RDW Coeff of Ewa Plt Count MPV Immature Gran % (Auto) Neut % (Auto) Lymph % (Auto) [place] % (Auto) Eos % (Auto) Baso % (Auto) Absolute Neuts (auto) Absolute Lymphs (auto) Nucleated RBC % PT INR APTT Sodium Potassium Chloride Carbon Dioxide Anion Gap BUN Creatinine Estim Creat Clear Calc Est GFR (MDRD) Af Amer Est GFR (MDRD) Non-Af BUN/Creatinine Ratio Glucose Lactic Acid 1.8 Calcium Total Bilirubin AST ALT Alkaline Phosphatase Troponin I Total Protein Albumin Globulin Albumin/Globulin Ratio Procalcitonin 0.08 Radiology Impression Chest X-Ray 09/02/20 13:10 IMPRESSION: Subtle patchy interstitial opacifications in the lower halves of both lung roblero. Differential as described above. Small left pleural effusion Electronically Signed: Evaristo Cortez MD at 13:21 EDT , Service support , Chest CTA 09/02/20 14:22 IMPRESSION: 1. No central or segmental pulmonary embolism. 2. Multilobar reticular and groundglass opacities with imaging features commonly reported with COVID pneumonia. Electronically Signed: Sky Bales MD (Brooks) at 14:59 EDT , Service support , Assessment & Plan Assessment/Plan (1) Acute respiratory failure with hypoxia: (2) Afib: (3) COVID-19: PLAN: #Acute hypoxic respiratory failure due to covid 19 infection * admit to COVID unit * since symptoms started 11 days ago, I am unsure if he will need remdesivir * start IV decadrone. Breathing treatment and bronchodilators. Titrate oxygen to maintain saturation above 90%. * Consult critical care and ID. * #New onset A. fib * Patient has been tachycardic up into the 140s on admission. * CT of the chest was negative for PE. He does have a history of PE and has been anticoagulated with Eliquis * Given a dose of Cardizem in the ED. Will start on p.o. metoprolol. If annalise galindo remains tachycardic, will likely need Cardizem drip. * Also hydrated with IV fluids as patient is dehydrated. * #Hypokalemia: Potassium is 3.4. Replace DVT prophylaxis: On Eliquis as stated above CODE STATUS: Full code * Patient counseled about different between full code, DNR CCA and DNRCC. Patient elects to be full code. * Total [id number] time-17 minutes.
[2020-09-02 15:18] LABS: Color, Urine Yellow (Yellow); Glucose, Dipstick Normal (Normal); Leukocyte Esterase-Dipstick 25 /ul (Negative); Nitrite-Dipstick Negative (Negative); Occult Blood-Urine 25 /ul (Negative); Protein-Dipstick 30 mg/dl (Negative); Specific Gravity, Urine 1.015 (1.002-1.030); Urine Clarity Sl. Cloudy (Clear); Urine Urobilinogen 4 mg/dl (Normal)
[2020-09-02 15:24] LABS: Urine Bilirubin Dipstick 1 mg/dL (Negative)
[2020-09-02 15:25] LABS: Ketone-Dipstick 150 mg/dl (Negative)
[2020-09-02 15:26] LABS: White Blood Cells 0-5 SEEN /hpf (0-5)
[2020-09-02 15:27] LABS: Bacteria RARE /hpf (None Seen); Red Blood Cells-Urine 0-5 SEEN /hpf (0-5)
[2020-09-02] MEDS: dilTIAZem 25 MG/5 ML Vial 20 MG IV BOLUS (15:35)
[2020-09-02] MEDS: 0.9% Normal Saline 1,000 ML 150 ML IV (16:36)
[2020-09-02] MEDS: Metoprolol(XL)Succ 25 MG Tablet PO (16:36)
[2020-09-02] MEDS: Ondansetron 4 MG/2 ML Vial IV (18:05)
[2020-09-02] MEDS: 0.9% Normal Saline 1,000 ML 125 ML IV (18:46)
[2020-09-02 19:37] LABS: Absolute Lymphocyte Count 0.95 X10^3/uL (0.83-4.51); Absolute Neutrophil Count 6.2 X10^3/uL (2.0-7.7); Basophil# 0.02 X10^3/uL; Basophil% 0.3 % (0-1); Hematocrit 42.6 % (40-54); Hemoglobin 14.5 g/dL (13.0-16.5); Lymphocyte # 0.95 X10^3/ul (0.83-4.51); Lymphocyte % 12.5 % (19-41); Mean Corpuscular Hgb 29.4 pg (27.0-32.0); Mean Corpuscular Volume 86.2 fL (80-94); Mean Platelet Vol. 9.6 fl (6.2-12.0); Monocyte# 0.38 X10^3/uL; NRBC Flagged by Analyzer 0 % (0-5); Neutrophil # 6.21 X10^3/uL (2.7-7.7); Neutrophil % 81.5 % (47-70); POSITIVE MORPHOLOGY YES; Platelet Count 290 K/mm3 (150-450); RBC Distribution Width CV 12.3 % (11.6-14.6); RBC Distribution Width SD 38.8 fl (35.1-43.9); Red Blood Count 4.94 M/mm3 (4.6-6.2); White Blood Count 7.6 K/mm3 (4.4-11.0)
[2020-09-02 19:39] LABS: Differential Indicated SCAN CRITERIA MET
[2020-09-02 19:48] LABS: D-Dimer Quantitative (DVT/PE) 0.86 FEU/ug/m (0.27-0.49)
[2020-09-02 19:50] LABS: Lactic Acid 1.7 mmol/L (0.4-1.9)
[2020-09-02 19:51] LABS: ALB/GLOB Ratio 0.7 RATIO (0.9-2.4); AST(SGOT) 24 U/L (15-37); Alanine Aminotransfer ALT/SGPT 20 U/L (16-61); Albumin, Serum 2.6 g/dL (3.2-5.0); Alkaline Phosphatase 73 U/L (45-117); Anion Gap 9 (5-15); BUN 18 mg/dL (7-18); BUN/Creat Ratio 19.2 RATIO (10-20); Chloride 109 mmol/L (98-107); Creatinine, Serum 0.94 mg/dL (0.70-1.30); EST Glomerular Filtration Rate 88 mL/min (>60); Est Glom Filt Rate - Afr Amer 107 mL/min (>60); Estimated Creatinine Clearance 114.91 ml/min; Globulin 3.7 g/dL (2.2-4.2); Glucose 93 mg/dL (74-106); Potassium 3.3 mmol/L (3.5-5.1); Protein, Total 6.3 g/dL (6.4-8.2); Sodium Level 140 mmol/L (136-145)
[2020-09-02 20:02] LABS: Differential Comment SCANNED
[2020-09-02 20:12] LABS: BNP,B-Type NATRIURETIC PEPTIDE 74.4 pg/mL (0-100)
[2020-09-02] MEDS: Acetaminophen 325 MG Tablet 650 MG PO (21:20)
[2020-09-02] MEDS: guaiFENesin 10 ML UDC (200MG/10ML) 20 ML PO (21:20)
[2020-09-02] MEDS: APIXABAN 5 MG TABLET PO (21:20)
[2020-09-02] MEDS: Potassium Chloride Oral Tablet 20 MEQ 40 MEQ PO (21:20)
[2020-09-02] MEDS: 0.9% Saline Lock 10 ML Syringe IV (22:00)
[2020-09-03] VITALS (31 sets, daily range): BP systolic 95–133; BP diastolic 42–69; PULSE 81–99; RESP 17–24; TEMP 36.6–37; O2SAT 93–95; BMI 25.0
[2020-09-03] MEDS: 0.9% Normal Saline 1,000 ML 125 ML IV (03:00)
[2020-09-03] MEDS: 0.9% Saline Lock 10 ML Syringe IV ×4 (03:38→20:50)
[2020-09-03 03:51] LABS: Absolute Lymphocyte Count 0.92 X10^3/uL (0.83-4.51); Basophil# 0.02 X10^3/uL; Basophil% 0.3 % (0-1); Eosinophil# 0.01 X10^3/uL; Eosinophils% 0.1 % (0-5); Hematocrit 39.4 % (40-54); Hemoglobin 13.3 g/dL (13.0-16.5); Lymphocyte # 0.92 X10^3/ul (0.83-4.51); Lymphocyte % 12.5 % (19-41); Mean Corp Hgb Conc 33.8 g/dL (32-36); Mean Corpuscular Hgb 29.8 pg (27.0-32.0); Mean Corpuscular Volume 88.1 fL (80-94); Mean Platelet Vol. 9.4 fl (6.2-12.0); Monocyte# 0.35 X10^3/uL; Monocyte% 4.8 % (0-10); NRBC Flagged by Analyzer 0 % (0-5); Neutrophil # 5.99 X10^3/uL (2.7-7.7); Neutrophil % 81.5 % (47-70); POSITIVE MORPHOLOGY YES; Platelet Count 254 K/mm3 (150-450); RBC Distribution Width CV 12.3 % (11.6-14.6); RBC Distribution Width SD 40.2 fl (35.1-43.9); Red Blood Count 4.47 M/mm3 (4.6-6.2); White Blood Count 7.4 K/mm3 (4.4-11.0)
[2020-09-03 03:53] LABS: Differential Indicated SCAN CRITERIA MET
[2020-09-03 04:05] LABS: Anion Gap 6 (5-15); BUN 16 mg/dL (7-18); BUN/Creat Ratio 17.8 RATIO (10-20); Calcium,Total 7.5 mg/dL (8.5-10.1); Chloride 110 mmol/L (98-107); EST Glomerular Filtration Rate 93 mL/min (>60); Est Glom Filt Rate - Afr Amer 112 mL/min (>60); Estimated Creatinine Clearance 120.02 ml/min; Glucose 98 mg/dL (74-106); Potassium 3.6 mmol/L (3.5-5.1); Sodium Level 141 mmol/L (136-145)
[2020-09-03] MEDS: dexAMETHasone 4 MG Tablet 6 MG PO (08:26)
[2020-09-03] MEDS: APIXABAN 5 MG TABLET PO ×2 (08:26→20:02)
[2020-09-03] MEDS: Ondansetron 4 MG/2 ML Vial IV (08:27)
[2020-09-03] MEDS: guaiFENesin 10 ML UDC (200MG/10ML) 20 ML PO (08:29)
--- NOTE | 2020-09-03 10:08 | PCM.NTREPORT ---
Nutrition Therapy Report - History Nutrition Services has been consulted to:: Manage nutrient details of diet order Current diet / nutrition support order:: cardiac - Anthropometric Measurements Height:: 6 ft 7.92 in Weight:: 103.1 kg Body Mass Index (BMI):: 25.0 - Relevant Labs Relevant Labs:: RBC 4.47 M/mm3 (4.6-6.2) L 09/03/20 03:40 Hct 39.4 % (40-54) L 09/03/20 03:40 Neut % (Auto) 81.5 % (47-70) H 09/03/20 03:40 Lymph % (Auto) 12.5 % (19-41) L 09/03/20 03:40 PT 18.3 SECONDS (11.7-14.9) H 09/02/20 13:25 D-Dimer Quant (PE/DVT) 0.86 FEU/ug/m (0.27-0.49) H* 09/02/20 18:55 Potassium 3.3 mmol/L (3.5-5.1) L 09/02/20 18:15 Chloride 110 mmol/L (98-107) H 09/03/20 03:40 BUN 20 mg/dL (7-18) H 09/02/20 13:25 BUN/Creatinine Ratio 21.1 RATIO (10-20) H 09/02/20 13:25 Calcium 7.5 mg/dL (8.5-10.1) L 09/03/20 03:40 Total Protein 6.3 g/dL (6.4-8.2) L 09/02/20 18:15 Albumin 2.6 g/dL (3.2-5.0) L 09/02/20 18:15 Globulin 4.3 g/dL (2.2-4.2) H 09/02/20 13:25 Albumin/Globulin Ratio 0.7 RATIO (0.9-2.4) L 09/02/20 18:15 - Assessment Food / Nutrition-Related History:: Spoke w/ pt via room phone d/t COVID-19 isolation. Describes consuming ~75% of breakfast this AM. Feels appetite/intake is improving. States he was eating very little over past 10 days d/t loss of taste/smell and not feeling well. UBW 240# w/ unintentional wt loss over past 10 days. CBW 227.3#-12.7#/5.3% wt loss is significant for acute malnutrition. No special diet followed normally at home. - Nutrition Diagnosis Problem / Etiology / Signs & Symptoms (PES):: severe, acute malnutrition related to inadequate energy intake, loss of taste/smell due to COVID-19 illness as evidenced by unintentional wt loss of 12.7#/5.3% x 10 days, estimated PO intake meeting <50% of estimated nutritional needs >5 days. Evidence of Malnutrition Exists:: Yes Severe Protein Calorie Malnutrition:: Acute Illness - Nutrition Intervention Nutrition Prescription:: 4416-2217 calories/day (1.3xRMR). 80-90 g protein/day (0.8g/kg). 3093mL fluid/day (30mL/kg) - Food / Nutrient Delivery Interventions Summary of nutrition intervention:: Assisted pt w/ lunch order. Pt w/ no questions at this time. Feels appetite/intake has improved since admission. Nutrition support ordered as / adjusted to:: will change diet to regular d/t acute malnutrition; will monitor intake at meals and provide Ensure if indicated. - MNT Monitoring Further MNT monitoring and evaluation required?: Yes MNT Follow-up in:: 3-5 days
[2020-09-03] MEDS: Digoxin 250 MCG/ML Ampul 500 MCG IV (10:43)
[2020-09-03] MEDS: Amiodarone 360 MG in Dextrose 5% Viaflo Bag 192.8 ML 33.3 MG CONT INF (13:25)
--- NOTE | 2020-09-03 14:25 | CASEMGMT ---
RN CM called patient in room for initial transition planning/care coordination assessment. RN TSERING introduced self and role at [facility]. Patient is alert and oriented. Patient willing to participate in assessment and is able to answer all questions appropriately. Care providers, pharmacy, and demographics verified. Patient wishes to discharge home, denies need for home health at this time. Patient states he has no further needs or concerns at this time. CM to follow for discharge planning needs that may arise. PCP: Destiny Specialists: None Preferred Pharmacy: [facility] Insurance: MMO Prescription Benefit: yes Living Will/HPOA: yes, Paulina Hanks LNOK: Living Arrangements: Ade lives with in a [facility] home with bed and bath on main level. No steps to enter the home. Patient states he is independent at home. Transportation: self/ DME/HHC: Patient denies DME or previous HHC. Disposition Plan: Patient to discharge home with family support and follow-up plans in place. Yamini SWANN, RN, CM
--- NOTE | 2020-09-03 14:36 | PCM.PN.HOSP ---
Subjective Subjective Patient was seen and examined today, he is on room air currently, I talked briefly with infectious diseases who recommended continuing dexamethasone. Patient is in atrial flutter at this time with a rate of approximately 90-95 digoxin today which did not affect the heart rate. Patient remains on a Cardizem drip at this time, I gave the patient an IV dose of I talked briefly by phone with cardiology today, they recommended at 10 mg/h. starting the patient on amiodarone and talk to the patient concerning cardioversion tomorrow if needed, I did not mention it to the patient today and he will think about it. Objective Data Objective Data Vital Signs: Vital Signs Temp Pulse Resp BP Pulse Ox 97.8 F 85 20 H 107/50 L 93 09/03/20 14:00 09/03/20 14:00 09/03/20 14:00 09/03/20 14:00 09/03/20 14:00 Oxygen Delivery Method Room Air Weight: 103.1 kg Body Mass Index (BMI) 25.0 Intake & Output: Intake and Output for Last 24 Hours 09/01/20 09/02/20 09/03/20 23:59 23:59 23:59 Intake Total 1100.00 / 1350.00 3043 / 3043 Output Total 300 / 525 775 / 775 Balance 800.00 / 825.00 2268 / 2268 Lab / Micro Data Result Diagrams: 09/03/20 03:40 09/03/20 03:40 Labs: Laboratory Results - last 24 hr 09/02/20 09/02/20 09/02/20 14:50 15:32 18:15 WBC RBC Hgb Hct MCV MCH MCHC RDW Std Deviation RDW Coeff of Ewa Plt Count MPV Immature Gran % (Auto) Neut % (Auto) Lymph % (Auto) [place] % (Auto) Eos % (Auto) Baso % (Auto) Absolute Neuts (auto) Absolute Lymphs (auto) Nucleated RBC % Differential Comment D-Dimer Quant (PE/DVT) Sodium Potassium Chloride Carbon Dioxide Anion Gap BUN Creatinine Estim Creat Clear Calc Est GFR (MDRD) Af Amer Est GFR (MDRD) Non-Af BUN/Creatinine Ratio Glucose Lactic Acid Calcium Total Bilirubin AST ALT Alkaline Phosphatase Troponin I < 0.015 B-Natriuretic Peptide Total Protein Albumin Globulin Albumin/Globulin Ratio Urine Color Yellow Urine Clarity Sl. Cloudy Urine pH 6.0 Ur Specific [place] 1.015 Urine Protein 30 H Urine Glucose (UA) Normal Urine Ketones 150 A* Urine Occult Blood 25 H Urine Nitrite Negative Urine Bilirubin 1 H Urine Urobilinogen 4 H Ur Leukocyte Esterase 25 H Urine RBC 0-5 SEEN Urine WBC 0-5 SEEN Ur Squamous Epith Cells 0 SEEN Urine Bacteria RARE Urine Mucus 0 SEEN COVID-19 (KENDRA) Detected 09/02/20 09/02/20 09/02/20 18:15 18:55 18:55 WBC RBC Hgb Hct MCV MCH MCHC RDW Std Deviation RDW Coeff of Ewa Plt Count MPV Immature Gran % (Auto) Neut % (Auto) Lymph % (Auto) [place] % (Auto) Eos % (Auto) Baso % (Auto) Absolute Neuts (auto) Absolute Lymphs (auto) Nucleated RBC % Differential Comment D-Dimer Quant (PE/DVT) 0.86 H* Sodium 140 Potassium 3.3 L Chloride 109 H Carbon Dioxide 22.0 Anion Gap 9 BUN 18 Creatinine 0.94 Estim Creat Clear Calc 114.91 Est GFR (MDRD) Af Amer 107 Est GFR (MDRD) Non-Af 88 BUN/Creatinine Ratio 19.2 Glucose 93 Lactic Acid 1.7 Calcium 8.0 L Total Bilirubin 0.80 AST 24 ALT 20 Alkaline Phosphatase 73 Troponin I B-Natriuretic Peptide Total Protein 6.3 L Albumin 2.6 L Globulin 3.7 Albumin/Globulin Ratio 0.7 L Urine Color Urine Clarity Urine pH Ur Specific [place] Urine Protein Urine Glucose (UA) Urine Ketones Urine Occult Blood Urine Nitrite Urine Bilirubin Urine Urobilinogen Ur Leukocyte Esterase Urine RBC Urine WBC Ur Squamous Epith Cells Urine Bacteria Urine Mucus COVID-19 (KENDRA) 09/02/20 09/02/20 09/02/20 18:55 18:55 21:15 WBC 7.6 RBC 4.94 Hgb 14.5 Hct 42.6 MCV 86.2 MCH 29.4 MCHC 34.0 RDW Std Deviation 38.8 RDW Coeff of Ewa 12.3 Plt Count 290 MPV 9.6 Immature Gran % (Auto) 0.700 Neut % (Auto) 81.5 H Lymph % (Auto) 12.5 L [place] % (Auto) 5.0 Eos % (Auto) 0.0 Baso % (Auto) 0.3 Absolute Neuts (auto) 6.2 Absolute Lymphs (auto) 0.95 Nucleated RBC % 0 Differential Comment SCANNED D-Dimer Quant (PE/DVT) Sodium Potassium Chloride Carbon Dioxide Anion Gap BUN Creatinine Estim Creat Clear Calc Est GFR (MDRD) Af Amer Est GFR (MDRD) Non-Af BUN/Creatinine Ratio Glucose Lactic Acid Calcium Total Bilirubin AST ALT Alkaline Phosphatase Troponin I < 0.015 B-Natriuretic Peptide 74.4 Total Protein Albumin Globulin Albumin/Globulin Ratio Urine Color Urine Clarity Urine pH Ur Specific [place] Urine Protein Urine Glucose (UA) Urine Ketones Urine Occult Blood Urine Nitrite Urine Bilirubin Urine Urobilinogen Ur Leukocyte Esterase Urine RBC Urine WBC Ur Squamous Epith Cells Urine Bacteria Urine Mucus COVID-19 (KENDRA) 09/03/20 09/03/20 03:40 03:40 WBC 7.4 RBC 4.47 L Hgb 13.3 Hct 39.4 L MCV 88.1 MCH 29.8 MCHC 33.8 RDW Std Deviation 40.2 RDW Coeff of Ewa 12.3 Plt Count 254 MPV 9.4 Immature Gran % (Auto) 0.800 Neut % (Auto) 81.5 H Lymph % (Auto) 12.5 L [place] % (Auto) 4.8 Eos % (Auto) 0.1 Baso % (Auto) 0.3 Absolute Neuts (auto) 6.0 Absolute Lymphs (auto) 0.92 Nucleated RBC % 0 Differential Comment D-Dimer Quant (PE/DVT) Sodium 141 Potassium 3.6 Chloride 110 H Carbon Dioxide 25.0 Anion Gap 6 BUN 16 Creatinine 0.90 Estim Creat Clear Calc 120.02 Est GFR (MDRD) Af Amer 112 Est GFR (MDRD) Non-Af 93 BUN/Creatinine Ratio 17.8 Glucose 98 Lactic Acid Calcium 7.5 L Total Bilirubin AST ALT Alkaline Phosphatase Troponin I B-Natriuretic Peptide Total Protein Albumin Globulin Albumin/Globulin Ratio Urine Color Urine Clarity Urine pH Ur Specific [place] Urine Protein Urine Glucose (UA) Urine Ketones Urine Occult Blood Urine Nitrite Urine Bilirubin Urine Urobilinogen Ur Leukocyte Esterase Urine RBC Urine WBC Ur Squamous Epith Cells Urine Bacteria Urine Mucus COVID-19 (KENDRA) Micro: Microbiology 09/02/20 14:50 Urine, Clean Catch Urine Culture - Preliminary Culture exhibits no growth. Radiography Diagnostic Testing: Radiology Impression Chest CTA 09/02/20 14:22 IMPRESSION: 1. No central or segmental pulmonary embolism. 2. Multilobar reticular and groundglass opacities with imaging features commonly reported with COVID pneumonia. Electronically Signed: Sky Bales MD (Brooks) at 14:59 EDT , Service support , Physical Exam Const oriented x3, no apparent distress and average body habitus Exam Limitations: no limitations HEENT head/scalp atraumatic and moist oral mucous membranes Head and Scalp: normocephalic Eyes PERRL, EOMs intact bilaterally and conjunctivae normal Neck no lymphadenopathy, supple and no JVD Resp normal respiratory effort, no retractions, no use of accessory muscles and clear to auscultation bilaterally Cardio regular rate, regular rhythm, S1 normal heart sound, S2 normal heart sound and no gallops GI normal to inspection, nondistended, normoactive bowel sounds, soft to palpation, non-tender and non-distended Extremity normal to inspection and no clubbing, cyanosis or edema Skin no rashes or lesions noted, no wounds and skin turgor normal Neuro oriented x3, CN's II-XII intact bilaterally, no focal motor deficits and no sensory deficits noted Sensorium / Orientation: awake and alert Psych affect normal Assessment & Plan Assessment/Plan (1) COVID-19: PLAN: #1 new onset atrial fibrillation with RVR-patient now in atrial flutter with a rate of approximately 95, continue IV amiodarone and IV Cardizem, reevaluate the patient in the morning for possible cardioversion. I discussed this also with critical care. 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 Visit Charges Inpatient E&M: 31612 Subs Hosp L2
[2020-09-03] MEDS: Digoxin 250 MCG/ML Ampul IV (18:20)
[2020-09-03] MEDS: Amiodarone 360 MG in Dextrose 5% Viaflo Bag 192.8 ML 16.7 MG CONT INF (19:55)
[2020-09-04] VITALS (23 sets, daily range): BP systolic 104–145; BP diastolic 50–75; PULSE 75–98; RESP 15–20; TEMP 36.3–36.8; O2SAT 91–99
[2020-09-04 04:41] LABS: Anion Gap 5 (5-15); BUN 15 mg/dL (7-18); BUN/Creat Ratio 17.5 RATIO (10-20); Calcium,Total 8.1 mg/dL (8.5-10.1); Chloride 112 mmol/L (98-107); Creatinine, Serum 0.86 mg/dL (0.70-1.30); EST Glomerular Filtration Rate 98 mL/min (>60); Est Glom Filt Rate - Afr Amer 118 mL/min (>60); Glucose 129 mg/dL (74-106); Sodium Level 142 mmol/L (136-145); T4 Free Direct 2.24 ng/dL (0.76-1.46); Thyroid Stim Hormone (TSH) 0.15 uIU/mL (0.358-3.74)
--- NOTE | 2020-09-04 08:06 | PCM.OP.PRO ---
Procedure Report Date of Procedure: 09/04/20 CONSCIOUS SEDATION REPORT DATE OF SERVICE: September 04, 2020 BRIEF HISTORY OF PRESENT ILLNESS: The patient is a 55-year-old male, currently admitted to [facility] due to underlying COVID-19 pneumonia. The patient subsequently developed atrial flutter, for which he was evaluated by cardiology. The patient is chronically anticoagulated on Eliquis due to a history of DVT. The patient denies any prior anesthetic complications. He has no known history of obstructive sleep apnea, COPD or asthma. PHYSICAL EXAMINATION: VITAL SIGNS: Reviewed and were acceptable. GENERAL: The patient is a male, in no apparent distress, speaking in full sentences. HEENT: Normocephalic, atraumatic. Mucous membranes are moist and pink. Good mouth opening noted. Trachea is midline. CHEST: S1, S2 irregularly irregular. No murmurs, rubs or gallops were noted. LUNGS: Clear to auscultation bilaterally without appreciable wheezes, rales or rhonchi. ABDOMEN: Soft, nontender, nondistended. Positive bowel sounds. EXTREMITIES: There is no clubbing, cyanosis or edema. ASA Class: II DESCRIPTION OF PROCEDURE: After confirmation of informed consent, the patient's anesthesia plan was reviewed in detail. Propofol was chosen. Risks and benefits were reviewed and the patient agreed to proceed. At 0750, the patient was given his first bolus of propofol. In total, throughout the entire procedure, the patient required 150 mg of propofol to achieve an appropriate level of sedation, after which time, he received a 50 J synchronized cardioversion by Dr. Rudd at the bedside. This was successful in achieving normal sinus rhythm. The patient was monitored until 0803, at which time he reached his baseline mental status and function. The patient tolerated the procedure well. COMPLICATIONS: None ESTIMATED BLOOD LOSS: None RECOMMENDATIONS: Okay to recover in usual fashion. Procedures Pulmonary CF Procedures Pulmonary: 54786 Con Sedation
[2020-09-04 08:17] LABS: Free T3 2.4 pg/mL (2.18-3.98)
[2020-09-04] MEDS: Amiodarone 360 MG in Dextrose 5% Viaflo Bag 192.8 ML 16.7 MG CONT INF (08:44)
[2020-09-04] MEDS: APIXABAN 5 MG TABLET PO (08:44)
[2020-09-04] MEDS: dexAMETHasone 4 MG Tablet 6 MG PO (08:44)
--- NOTE | 2020-09-04 09:00 | EKG12_ITS ---
Test Reason : Blood Pressure : / mmHG Vent. Rate : 072 BPM Atrial Rate : 072 BPM P-R Int : 148 ms QRS Dur : 108 ms QT Int : 410 ms P-R-T Axes : 051 010 073 degrees QTc Int : 448 ms Normal sinus rhythm Nonspecific ST and T wave abnormality Abnormal ECG Confirmed by MEDINA DURAN, GILLIAN ([id number]), digital editor ÁLVARO SCHMITT ([id number]) on 09/18/2020 1:17:19 PM Referred By: MEDINA Confirmed By:GILLIAN HANEY MD
--- NOTE | 2020-09-04 09:59 | CARDIOVERS ---
Cardioversion Cardioversion: Date: 09-04-2020 Procedure: Synchronized Biphasic DC Cardioversion Indications: Atrial flutter Consent: Per the Patient Anesthesia: per Dr. Barrios of pulmonology and critical care medicine with propofol 150 mg IV push total Procedure: Synchronized Biphasic DC Cardioversion: 50 J x 1: Result: Sinus rhythm Complications: no apparent complications This note was generated with [employer] software. It may contain incorrect words, spelling, and punctuation that were not noted in checking the note before signing.
--- NOTE | 2020-09-04 10:12 | PCM.CONS.C ---
Assessment & Plan Assessment/Plan (1) Atrial fibrillation and flutter: PLAN: At the present time the patient demonstrated atrial fibrillation/flutter. The etiology may be related to his recent COVID-19 infectious disease process. However contribution from his underlying thyroid disorder demonstrating an elevated free T4 and a low TSH cannot necessarily be excluded. At the present time he is on rate limiting therapy and antiarrhythmic therapy and he has been on chronic anticoagulant therapy. As he has remained in his atrial flutter he has been recommended for further evaluation with synchronized biphasic DC cardioversion. The procedure and risk were discussed with him. He was agreeable to this approach. Over time he will also need outpatient cardiovascular follow-up and a transthoracic echocardiogram to evaluate his atrial size as well as his ventricular size, wall motion, and systolic function. He should also be considered for further endocrinologic evaluation of his thyroid disorder. (2) Thyroid disorder: PLAN: Again he has been found to have an underlying thyroid disorder. Is unclear whether this is contributing to his atrial dysrhythmia. He should be evaluated for this further which may include endocrinology consultation to assist in ongoing evaluation and care. (3) COVID-19: PLAN: He will continue evaluation care per internal medicine and if need be pulmonology and critical care medicine. Addt'l Comments The patient's case has been discussed and reviewed with the patient and Dr. Doherty. This note was generated using a voice recognition system and there may be incorrect words, spelling or punctuation that were not noted when reviewing the office note prior to saving. HPI Consult Data Date of Consult: 09/04/20 HPI Narrative HPI Narrative: JENNY GUERRA, is a 55 M who presents for a consultation based upon concerns of atrial fibrillation/flutter. To the best of his knowledge he has no known cardiovascular disease history. He states recently he was diagnosed with COVID-19. He subsequently presented to the hospital based upon concerns of feeling weak. He was placed in the ICU in isolation for further evaluation and care. He was noted to have atrial fibrillation/flutter. He was treated medically with rate control therapy, antiarrhythmic therapy, and he had been on long-term anticoagulant therapy based upon a remote history of DVT. He underwent evaluation with a troponin I level which was negative. His cardiac rhythm was noted for atrial fibrillation with subsequent concern of conversion to atrial flutter. He underwent radiologic studies including a chest CT scan that was reported as negative for thromboembolic disease. He has had subsequent thyroid studies which did demonstrate mild elevation of his free T4 level and a decreased TSH level. As he has remained in atrial flutter cardiology was consulted to consider further evaluation and care with synchronized biphasic DC cardioversion. The patient denies, prior to his recent illness, any obvious chest discomfort at rest or with activity. He has had no obvious episodes of orthopnea or PND or peripheral pitting edema. There has been no history of palpitations or rapid rates and he denies any near-syncope or syncope. [facility] Medical History (Updated 09/04/20 @ 10:[address] Willie Rudd MD) Atrial fibrillation and flutter DVT (deep venous thrombosis) Left tibial fracture Thyroid disorder Home Medications apixaban 5 mg PO BID #74 tab 08/26/18 [Rx Last Taken 09/02/20] Allergy/AdvReac Type Severity Reaction Status Date / Time No Known Allergies Allergy Verified 09/02/20 12:00 Surgical History (Updated 09/02/20 @ 16:29 by Yamini Fuentes) History of tonsillectomy and adenoidectomy Social History Smoking Status: Never smoker Physical Exam Const alert, oriented x3, no apparent distress and healthy appearing Orientation / Consciousness: awake HEENT normocephalic, head/scalp atraumatic and hearing grossly normal bilaterally Eyes PERRL, EOMs intact bilaterally and conjunctivae normal Neck full ROM, supple, no JVD and no carotid bruits Chest inspection of chest normal Resp normal respiratory effort and clear to auscultation bilaterally Cardio regular rate, regular rhythm, S1 normal heart sound and S2 normal heart sound GI normal to inspection, nondistended, normoactive bowel sounds Extremity normal to inspection Skin no rashes or lesions noted Neuro oriented x3, moves all extremities, no focal motor deficits and no sensory deficits noted Psych mental status grossly normal Procedure Criteria Type of Procedure Procedure Type: Elective Elective Risks - COVID COVID Risk Discussion: The surgeon/proceduralist and patient have discussed in detail the risk of exposure to and/or potential harm posed by the COVID-19 virus with having a surgery/procedure at this time versus the risk of delaying the surgery/procedure. It is not possible to know either the risk of delaying the surgery or procedure or chance of getting an infection with perfect accuracy, but a joint decision was made between the patient and the surgeon/proceduralist to proceed at this time with the scheduled surgery/procedure as indicated on the consent form.
[2020-09-04] MEDS: dilTIAZem CD 240 MG Capsule PO (10:42)
[2020-09-04] MEDS: 0.9% Saline Lock 10 ML Syringe IV (10:43)
--- NOTE | 2020-09-04 17:22 | PCM.DC ---
Discharge Instructions Diet Discharge Diet: No restrictions Activity Discharge Activity: Return to Normal Activity and - (Quarantine until 09/11/2020) Weight Bearing Status: Full weight bearing Follow Up Care Test Results: Test results from this visit will be discussed in further detail at your follow-up appointment, if applicable. Discharge Plan Admission Admit Date/Time: 09/02/20 17:44 Primary Reason for Your Visit: Atrial fib Attending Provider: Indra Doherty Primary Care Provider: Gorge Dixon III Consulting Providers: Willie Rudd Instructions Additional Instructions / Restrictions: He was quarantined until 09/11/2020, you must get repeat thyroid functions through your primary care physician in 2 to 3 weeks Discharge Orders/Prescriptions Prescriptions: New diltiazem HCl [Cardizem CD] 240 mg capsule,extended release 24hr 240 mg PO DAILY Qty: 30 RF: 0 dexamethasone 2 mg tablet 6 mg PO DAILY Qty: 21 RF: 0 Continued apixaban 5 MG tablet 5 mg PO BID Qty: 74 RF: 0 Referrals / Follow Up: Gorge Dixon III, MD [STAFF PHYSICIAN] - Within 2 Weeks Willie Rudd MD [STAFF PHYSICIAN] - See Referral Note (See in 3 to 4 weeks) Gorge Dixon III, MD [Primary Care Provider] - Disposition Disposition (needs filled in before D/C Order can be placed): Home, self care
--- NOTE | 2020-09-04 17:37 | PCM.DC.SUM ---
Providers Date of Admission: 09/02/20 Date of Discharge: 09/04/20 Primary Care Physician: Gorge Dixon III, MD Consultations 09/03/20 17:24 Consult: Cardiology Routine Consulting Provider: Willie Rudd Reason for Consult: a-flutter EMERGENT Consult: No MD Notified: Yes Date Notified:: 09/03/20 Time Notified: 17:26 Method of Notification: Verbal Reason For Visit: AFIB WITH RVR, COVID 19 INFECTION Diagnosis Discharge Diagnosis (1) Atrial fibrillation and flutter: Status: Acute Code(s): I48.91 - Unspecified atrial fibrillation; I48.92 - Unspecified atrial flutter (2) Thyroid disorder: Status: Acute Code(s): E07.9 - Disorder of thyroid, unspecified (3) COVID-19: Status: Acute Code(s): U07.1 - COVID-19 Plan: 1. New onset atrial fib/flutter-converted to normal sinus rhythm at the time of discharge after cardioversion #2 chronic use of Eliquis due to past history of DVT #3 recent COVID-19 infection #4 abnormal thyroid function tests-significance unclear Medications at Discharge Home Medications apixaban 5 mg PO BID #74 tab 08/26/18 dexamethasone 6 mg PO DAILY #21 tab 09/04/20 diltiazem HCl [Cardizem CD] 240 mg PO DAILY #30 cap 09/04/20 Hospital Course Operations None Procedures Cardioversion Summary of Care Provided Minutes Spent on Discharge: 32 Hospital Course: This 55-year-old white male was seen in the emergency room at [facility] with chief complaint of weakness and fatigue. He had been diagnosed with COVID-19 approximately 11 days prior. Evaluation in the emergency room revealed his CBC to be unremarkable, chemistry profile was remarkable for a potassium of 3.4 but was otherwise unremarkable. Chest x-ray revealed diffuse patchy infiltrates in both lungs in the lower half of both lung roblero. Patient was noted to be tachycardic in the 130s, EKG showed an irregular rhythm felt to be atrial fibrillation. Patient was given Cardizem 20 mg IV, he was admitted to [place] [address], he remained in atrial fib for short period of time but then went into atrial flutter. Patient was given rate control medications but did not convert spontaneously to normal sinus rhythm, he was seen in consultation by cardiology and on 09/04/2020, patient underwent a cardioversion. Cardioversion was successful with return to normal sinus rhythm. As a further note, patient had thyroid function test done during his hospitalization which were abnormal, patient's T3 was normal, his T4 and TSH were abnormal. On 09/04/2020, patient was seen and examined: On examination he appeared in good health and spirits. Vital signs as documented. Skin warm and dry and without overt rashes. Neck without JVD, neck was supple, trachea midline, thyroid was normal. Lungs clear bilaterally, normal air movement was noted. Heart exam notable for regular rhythm, normal sounds and absence of murmurs, rubs or gallops. Abdomen unremarkable and without evidence of organomegaly, masses, or abdominal aortic enlargement. Bowel sounds are present, abdomen is not distended. Extremities nonedematous, no cyanosis was noted, no clubbing was noted. Neuro: Cranial nerves II through XII are grossly intact, no focal motor deficits were noted, sensation to light touch and pinprick intact, motor exam 5/5 throughout. Psych: Patient is alert and oriented x3, he does not appear anxious or depressed, he does not appear agitated. Patient was felt to be stable for discharge on 09/04/2020, he was instructed to follow-up with his PCP regarding repeat thyroid function tests and he was to follow-up with cardiology in 3 to 4 weeks. Patient was a self quarantine until September 11, 2020. ABG / Lab / Microbiology Data Result Diagrams: 09/03/20 03:40 09/04/20 03:25 Laboratory: Laboratory Results - last 24 hr 09/04/20 09/04/20 03:25 03:25 Sodium 142 Potassium 4.0 Chloride 112 H Carbon Dioxide 25.0 Anion Gap 5 BUN 15 Creatinine 0.86 Estim Creat Clear Calc 125.60 Est GFR (MDRD) Af Amer 118 Est GFR (MDRD) Non-Af 98 BUN/Creatinine Ratio 17.5 Glucose 129 H Calcium 8.1 L TSH 0.15 L Free T4 2.24 H Free T3 pg/dL 2.4 Microbiology: Microbiology 09/02/20 14:50 Urine Culture - Final Urine, Clean Catch Culture exhibits no growth. 09/02/20 13:30 Blood Culture - Preliminary Blood Culture (Wb) - Anticubital Left No growth in 48 hours. 09/02/20 13:25 Blood Culture - Preliminary Blood Culture (Wb) - Anticubital Right No growth in 48 hours. Microbiology 09/02/20 14:50 Urine, Clean Catch Urine Culture - Final Culture exhibits no growth. 09/02/20 13:30 Blood Culture (Wb) - Anticubital Left Blood Culture - Preliminary No growth in 48 hours. 09/02/20 13:25 Blood Culture (Wb) - Anticubital Right Blood Culture - Preliminary No growth in 48 hours. D/C Instructions Discharge Diet: No restrictions Discharge Activity: Return to Normal Activity and - (Quarantine until 09/11/2020) Weight Bearing Status: Full weight bearing Meaningful Use Info Meaningful Use Diagnoses (Choose all that apply): None applicable Discharge Plan Admission Admit Date/Time: 09/02/20 17:44 Primary Reason for Your Visit: Atrial fib Attending Provider: Indra Doherty Primary Care Provider: Gorge Dixon III Consulting Providers: Willie Rudd Instructions Additional Instructions / Restrictions: He was quarantined until 09/11/2020, you must get repeat thyroid functions through your primary care physician in 2 to 3 weeks Discharge Orders/Prescriptions Prescriptions: New diltiazem HCl [Cardizem CD] 240 mg capsule,extended release 24hr 240 mg PO DAILY Qty: 30 RF: 0 dexamethasone 2 mg tablet 6 mg PO DAILY Qty: 21 RF: 0 Continued apixaban 5 MG tablet 5 mg PO BID Qty: 74 RF: 0 Referrals / Follow Up: Gorge Dixon III, MD [STAFF PHYSICIAN] - Within 2 Weeks Willie Rudd MD [STAFF PHYSICIAN] - See Referral Note (See in 3 to 4 weeks) Gorge Dixon III, MD [Primary Care Provider] - Disposition Disposition (needs filled in before D/C Order can be placed): Home, self care Visit Charges Inpatient E&M: 18446 Disch Hosp
--- NOTE | 2020-09-05 14:52 | CASEMGMT ---
RAKESH CAGLE Discharge Follow-Up Phone Call. Alexandrea: To Strata: 1 Discharge Date: 09/04/20 Adm Dx: COVID-19, A-Fib/RVR Call to pt to inquire about how he has been doing since being discharged from the hospital. Pt states, I'm doing okay. I'm still very weak, but I'm hanging in there. My breathing has been okay. I'm not SOB. Pt states he called and scheduled an appt w/Dr Rudd for October 17. He also called his PCP's office to make f/u appt. Dr Dixon is retiring and so his EMERGENCY DEPARTMENT COORDINATOR plans to call pt next week to go over stuff with me. Pt states they are working on switching him to a new PCP. Pt states he picked up his 2 new prescriptions today and is taking them as prescribed. Reviewed these medications w/pt and questions answered. Pt denies having other questions about the medications or about the discharge instructions. Pt stated he used a walker the first day he was admitted but then did not need one the 2nd day. He states he is ambulating well now and does not need a walker at home. He also denies need for any HHC or therapy. He thanked RAKESH CAGLE for calling. Pt stated, I appreciate what everyone did for me. I can't speak highly enough of everyone there. They were all very nice. Starla SWANN RN, CM
== END 2020-09-04 20:05 | disposition home or self-care (01) | DRG 177 ==
LOC: ED 12:48 → ICU 20:45
PROVIDERS: Admitting Provider Student in an Organized Health Care Education/Training Program; Emergency Provider Student in an Organized Health Care Education/Training Program; PCP Family Medicine; Visit Provider Internal Medicine
DX: U07.1 COVID-19 (principal); J12.82 Pneumonia due to coronavirus disease 2019; J96.01 Acute respiratory failure with hypoxia; I48.92 Unspecified atrial flutter; E44.0 Moderate protein-calorie malnutrition; I48.91 Unspecified atrial fibrillation; E87.6 Hypokalemia; E86.0 Dehydration; E07.9 Disorder of thyroid, unspecified; Z79.01 Long term (current) use of anticoagulants; Z68.25 Body mass index [BMI] 25.0-25.9, adult; Z86.718 Personal history of other venous thrombosis and embolism
CPT/HCPCS: 71045; 71275; 80048; 80053; 81001; 83605; 83880; 84145; 84439; 84443; 84481; 84484; 85025; 85379; 85610; 85730; 87040; 87086; 87635; 93005; 97162; 97166; 97530; 97802; 99285; J7030; J7050; Q9967; A4216; J2405; U0002

== ENCOUNTER 2021-10-12 15:25 | Inpatient (IN) | payer OTHER, SELFPAY ==
[2021-10-12 15:38] VITALS: BP 144/60; PULSE 73; RESP 18; TEMP 36.3; O2SAT 100; BMI 27.1
--- NOTE | 2021-10-12 16:35 | HP.PCM_ITS ---
[facility] - General General Date of Admission: 10/12/21 Date of Service: 10/13/21 Chief Complaint: Here for rehab. HPI Narrative JENNY GUERRA, is a 56 Male who presents with following: Bilateral hip pain starting 2020. Imaging showed avascular necrosis of bilateral hips. Dull pain, aching bilateral hip pain, radiating to bilateral thighs. 10/08/2021 [facility] General orthopedics performed right total hip replacement. Pain control, regular diet, Ancef 2gm given postoperatively. Sequential compression devices, resume Eliquis for DVT prophylaxis. 10/12/2021 Admit to TCU with debility, here for rehabilitation, strengthening, pr ior to discharge home with . [facility] Medical History (Updated 10/12/21 @ 16:[address] Steven Figueroa MD) Atrial fibrillation and flutter DVT (deep venous thrombosis) Left tibial fracture Thyroid disorder Home Medications acetaminophen 325 mg tablet (Tylenol) 650 mg PO Q6H PRN Pain (Scale Score 1-3) 10/12/21 [History Last Taken Unknown] apixaban 5 mg tablet 5 mg PO BID blood thinner 10/12/21 [History Last Taken Unknown] cholecalciferol (vitamin D3) 1,250 mcg (50,000 unit) capsule 1,250 mcg PO QWEEK bones 10/12/21 [History Last Taken Unknown] ibuprofen 200 mg tablet (Advil) 400 mg PO Q6H PRN Pain (Scale Score 4-6) 10/12/21 [History Last Taken Unknown] metoprolol succinate 50 mg tablet,extended release 24 hr 50 mg PO DAILY BP 10/12/21 [History Last Taken Unknown] oxycodone 5 mg capsule 5 mg PO Q6H PRN Pain (Scale Score 7-10) 10/12/21 [History Last Taken Unknown] Allergy/AdvReac Type Severity Reaction Status Date / Time diltiazem AdvReac Severe Gout Verified 04/30/21 15:28 flareup metoprolol AdvReac Severe Joint pain Verified 04/30/21 15:28 Family History Father Heart disease Surgical History (Updated 10/12/21 @ 16:[address] Steven Figueroa MD) History of rotator cuff surgery History of tonsillectomy and adenoidectomy History of total right hip arthroplasty Social History Smoking Status: Never smoker alcohol intake: current details: Rare substance use type: does not use caffeine: Yes Type: coffee Number of servings: 2 ROS Constitutional Constitutional: Denies chills, fever(s) or weight gain ENT HEENT: Denies headache(s), nasal congestion or nasal discharge Cardiovascular Cardiovascular: Denies chest pain or palpitations Respiratory/Chest Respiratory/Chest: Denies cough, excessive phlegm production or shortness of breath with exertion Gastrointestinal Gastrointestinal: Denies abdominal pain, nausea or vomiting Genitourinary Genitourinary: Denies dysuria Musculoskeletal Musculoskeletal: Denies joint pain or joint swelling Integumentary Integumentary: Denies rash or wounds Neurologic Neurologic: Denies focal weakness, numbness or tingling Psychiatric Psychiatric: Denies anxiety, auditory hallucinations, depression, homicidal ideation or suicidal ideation Vital Signs Vital Signs Vital Signs: 10/12/21 15:38 Temperature 97.3 F L Temperature Source Temporal Pulse Rate 73 Respiratory Rate 18 Blood Pressure 144/60 H Blood Pressure Mean 88 Blood Pressure Source Monitor Blood Pressure Position Semi-Fowlers Blood Pressure Location Left Arm Pulse Ox 100 Oxygen Delivery Method Room Air Physical Exam Const alert General Appearance: cooperative HEENT normocephalic Eyes PERRL and EOMs intact bilaterally Neck supple, no JVD and no carotid bruits Resp normal respiratory effort, normal air movement and clear to auscultation bilaterally Cardio regular rate and regular rhythm GI normal to inspection, nondistended, normoactive bowel sounds, non-tender and non-distended Extremity normal capillary refill General Extremity: Negative for edema Skin no rashes or lesions noted General Skin Exam: no breakdown Psych affect normal Appearance: appropriate Results Lab / Micro Data Result Diagrams: 10/13/21 05:25 10/13/21 05:25 Micro: Microbiology 10/12/21 15:50 Nasal Secretion SARS-CoV-2 Antigen (Rapid) - Final Assessment & Plan Assessment/Plan (1) Debility: (2) Avascular necrosis of bones of both hips: (3) Deep vein thrombosis: (4) Atrial fibrillation and flutter: (5) COVID-19: (6) Depression: (7) Anxiety: PLAN: Plan 56 year old male with below past medical history significant for avascular necrosis of bilateral hips, hospitalized for right total hip replacement 10/08/2021, admitted to TCU with debility, here for rehabilitation, strengthening, prior to discharge home with . * Debility - PT/OT. * Pain - Tylenol 650mg q6h prn pain (1-3), Motrin 400mg q6h prn pain (4-5), Oxycodone 5mg q6h prn pain (7-10). * Bowel - Senna/colace 2 tablets bid, Dulcolax 10mg daily prn. * Adult immunization - Administer pneumonia vaccine, covid19 vaccine, flu vaccine as appropriate. * DVT prophylaxis - Not necessary, on Eliquis. * Atrial fibrillation - Metoprolol succinate 50mg daily, Eliquis 5mg bid. * Vitamin D deficiency - D2 1.25mg per week.
[2021-10-12] MEDS: Senna/Docusate Sodium 1 Tablet 2 TABLET PO (18:19)
[2021-10-12] MEDS: Bisacodyl 5 MG Tablet 10 MG PO (18:19)
[2021-10-12] MEDS: APIXABAN 5 MG TABLET PO (18:59)
[2021-10-13 05:45] LABS: Absolute Lymphocyte Count 1.46 X10^3/uL (0.83-4.51); Absolute Neutrophil Count 5.2 X10^3/uL (2.0-7.7); Basophil# 0.01 X10^3/uL; Basophil% 0.1 % (0-1); Eosinophil# 0.08 X10^3/uL; Eosinophils% 1.1 % (0-5); Hematocrit 34.1 % (40-54); Hemoglobin 11.2 g/dL (13.0-16.5); Lymphocyte # 1.46 X10^3/ul (0.83-4.51); Lymphocyte % 19.6 % (19-41); Mean Corp Hgb Conc 32.8 g/dL (32-36); Mean Corpuscular Hgb 27.5 pg (27.0-32.0); Mean Corpuscular Volume 83.8 fL (80-94); Mean Platelet Vol. 8.9 fl (6.2-12.0); Monocyte% 9.4 % (0-10); NRBC Flagged by Analyzer 0 % (0-5); Neutrophil # 5.16 X10^3/uL (2.7-7.7); Neutrophil % 69.3 % (47-70); Platelet Count 358 K/mm3 (150-450); RBC Distribution Width CV 13.3 % (11.6-14.6); RBC Distribution Width SD 40.8 fl (35.1-43.9); Red Blood Count 4.07 M/mm3 (4.6-6.2); White Blood Count 7.5 K/mm3 (4.4-11.0)
[2021-10-13 06:11] VITALS: BP 149/76; PULSE 78
[2021-10-13 06:11] LABS: Anion Gap 9 (5-15); BUN 12 mg/dL (7-18); BUN/Creat Ratio 20.3 RATIO (10-20); Calcium,Total 8.6 mg/dL (8.5-10.1); Chloride 105 mmol/L (98-107); Creatinine, Serum 0.59 mg/dL (0.70-1.30); EST Glomerular Filtration Rate 150 mL/min (>60); Est Glom Filt Rate - Afr Amer 181 mL/min (>60); Estimated Creatinine Clearance 185.31 ml/min; Glucose 94 mg/dL (74-106); Potassium 3.3 mmol/L (3.5-5.1); Sodium Level 139 mmol/L (136-145)
[2021-10-13] MEDS: Metoprolol(XL)Succ 50 MG Tablet PO (06:11)
[2021-10-13] MEDS: APIXABAN 5 MG TABLET PO ×2 (06:12→17:23)
[2021-10-13] MEDS: Senna/Docusate Sodium 1 Tablet 2 TABLET PO ×2 (06:12→17:23)
[2021-10-13] MEDS: Potassium Chloride Oral Tablet 20 MEQ PO ×2 (08:43→08:44)
[2021-10-13] MEDS: Tuberculin,Purif.prot.deriv. 50 TU/ML Vial 0.1 ML ID (09:41)
--- NOTE | 2021-10-13 11:59 | CASEMGMT ---
Social Work Met with patient to complete initial assessment. Introduced self and role. Discussed code status and MOLST form. Pt confirms full code. MOLST communicated to , placed in chart. Explained MMO CM insurance and continued stay is not guaranteed with each review. The goal is to DC home with . see SW assessment for further details. SW to continue to follow for DC planning. Henrietta Valerio, MARINE ENGINE MECH[employer]IC JUNIOR TECHNICAL WRITER
[2021-10-13 14:00] VITALS: BP 140/74; PULSE 75; RESP 16; TEMP 36.6; O2SAT 95
--- NOTE | 2021-10-13 14:15 | PCM.PN.DRR ---
TCU RX Drug Regimen Review Subjective: []56 yo male admitted with history of bilateral hip avascular necrosis and S/P right total hip replacement 10.08.21. Now admitted with debility for strengthening and rehab before discharge home. Objective: Allergies diltiazem Adverse Reaction (Severe, Verified 04/30/21 15:28) Gout flareup metoprolol Adverse Reaction (Severe, Verified 04/30/21 15:28) Joint pain Current Medications Generic Name Dose Route Start Last Admin Trade Name Freq PRN Reason Stop Dose Admin Acetaminophen 650 mg 10/12/21 15:45 Acetaminophen 325 Mg Tablet PO Q6H PRN Pain (Scale Score 1-3) Apixaban 5 mg 10/12/21 18:00 10/13/21 06:12 Apixaban 5 Mg Tablet PO 5 mg BID RUSS Administration Bisacodyl 10 mg 10/12/21 16:47 10/12/21 18:19 Bisacodyl 5 Mg Tablet PO 10 mg DAILY PRN Administration Constipation Ergocalciferol 1.25 mg 10/16/21 08:00 Ergocalciferol 1.25 Mg (50, 000 Unit) Capsule PO Q7D RUSS Ibuprofen 400 mg 10/12/21 17:12 Ibuprofen 400 Mg Tablet PO Q6H PRN Pain (Scale Score 4-6) Metoprolol Succinate 50 mg 10/13/21 06:00 10/13/21 06:11 Metoprolol(Xl)Succ 50 Mg Tablet PO 50 mg DAILY RUSS Administration Oxycodone HCl 5 mg 10/12/21 15:45 Oxycodone 5 Mg Tablet PO Q6H PRN Pain (Scale Score 7-10) Potassium Chloride 20 meq 10/13/21 08:00 10/13/21 08:44 Potassium Chloride Oral Tablet 20 Meq PO 20 meq DAILYCM RUSS Administration Senna/Docusate Sodium 2 tablet 10/12/21 18:00 10/13/21 06:12 Senna/Docusate Sodium 1 Tablet PO 2 tablet BID RUSS Administration Sodium Chloride 10 - 40 ml 10/12/21 15:58 0.9% Saline Lock 10 Ml Syringe IV UD PRN SALINE FLUSH Tuberculin PPD 0.1 ml 10/20/21 10:00 Tuberculin,Purif.Prot.Deriv. 50 Tu/Ml Vial ID 10/20/21 10:01 X1 ONE Problem List (Last Updated 10/12/21 @ 16:[address] Steven Figueroa MD) Anxiety (Acute) Depression (Acute) Deep vein thrombosis (Acute) Avascular necrosis of bones of both hips (Acute) Debility (Acute) Atrial fibrillation and flutter (Acute) COVID-19 (Acute) Vital Signs Temp Pulse Resp BP Pulse Ox 97.3 F L 78 18 149/76 H 100 10/12/21 15:38 10/13/21 06:11 10/12/21 15:38 10/13/21 06:11 10/12/21 15:38 Oxygen Delivery Method Room Air Weight: 112.264 kg Body Mass Index (BMI) 27.1 Sodium 139 mmol/L (136-145) 10/13/21 05:25 Potassium 3.3 mmol/L (3.5-5.1) L 10/13/21 05:25 Chloride 105 mmol/L (98-107) 10/13/21 05:25 Carbon Dioxide 25.0 mmol/L (21.0-32.0) 10/13/21 05:25 Anion Gap 9 (5-15) 10/13/21 05:25 BUN 12 mg/dL (7-18) 10/13/21 05:25 Creatinine 0.59 mg/dL (0.70-1.30) L 10/13/21 05:25 Est GFR (MDRD) Af Amer 181 mL/min (>60) 10/13/21 05:25 Est GFR (MDRD) Non-Af 150 mL/min (>60) 10/13/21 05:25 BUN/Creatinine Ratio 20.3 RATIO (10-20) H 10/13/21 05:25 Glucose 94 mg/dL (74-106) 10/13/21 05:25 Assessment/Plan: Assessment/Plan 1) Avascular necrosis bones both hips S/P Right THR 10.08.21: acetaminophen 650mg po q6h prn (pain 1-3, AST 24,ALT 20 on 09.02.20) Used for headache (pain score 1 on 10.13 and hip pain (pain score 2 on 10.15.21), ibuprofen 400mg po q6h prn (pain 4-6, SCr 0.59,CrCl 185 on 10.13.21) oxycodone 5mg po q6h prn (pain 7-10). Monitor for need, increased usage, SCr if increase ibuprofen usage and function. Monitor for dizziness,sedation,constipation if usage of oxycodone. 2) Atrial fib,flutter, : metoprolol XL 50mg po daily for rate control (BP 125/59-149/76, HR 73-78), apixaban 5mg po bid for anticoagulation and DVT prophylaxis ( SCr 0.59, Hg 11.2 on 10.13.21) . Continue to monitor for palpitations, dizziness, BP. Continue to monitor for signs/sx of bleeding/bruising,Hg, SCr . Continue to monitor for initiation of new meds for interactive nature. *Note patient experienced dizziness with positive orthostatic vital signs on 10.13. Metoprolol could be contributing to orthostasis, BP and HR have been controlled, if remains orthostatic, consider decreasing metoprolol dose. 3) H/O DVT (08/2018): apixaban 5mg po bid. SCr 0.59, Hg 11.2 on 10.13.21) . Continue to monitor leg pain, swelling. Continue to monitor for signs/sx of bleeding/bruising,Hg,SCr . Continue to monitor for initiation of new meds for interactive nature. 4) Hypokalemia: potassium 20mEq po daily (K+ 3.3 on 10.13.21). Continue to monitor potassium level, signs/sx of GI upset. 5) Vitamin D deficiency: ergocalciferol 1.25mg (50,000 units) po weekly(no vitamin D level reported). Continue to monitor Vit D levels as periodically as clinically indicated. 6)Bowel: senna/docusate 2 tab po bid, bisacodyl 10mg po daily prn, (taken .), (last BM 10.14.21). Continue to monitor for constipation/diarrhea. 7)Nausea: ondansetron prn (10.13.21). Per EMR nursing notes, nausea improved after BM. Has not used ondansetron. Continue to monitor for nausea and increased usage. Assessment/Plan for indications treated with psychotropic medications: None Medical chart and medication regimen reviewed. The following medication irregularities or issues were identified: Patient has history of depression. Duloxetine filled in 12.21 per prescription fill history. Currently not on. Please evaluate for need. *Note patient experienced dizziness with positive orthostatic vital signs on 10.13. Metoprolol could be contributing to orthostasis, BP and HR have been controlled, if remains orthostatic, consider decreasing metoprolol dose. Date of Note:: 10/15/21
--- NOTE | 2021-10-13 15:24 | PT ---
Pt c/o dizziness with mobility. Pt's BP were as follows: supine 140/74, seated 114/58, and standing 109/64. Reported to THEATRICAL SCENIC DESIGNER.
[2021-10-13 16:03] VITALS: BP 109/64; BP 114/58; BP 140/74
--- NOTE | 2021-10-13 16:55 | RAD_ITS ---
STUDY: XR Abdomen 1 View 10/13/2021 5:05 PM REASON FOR EXAM: Male, 56 years old. ABDOMINAL PAIN Nausea TECHNIQUE: XR Abdomen 1 View COMPARISON: None FINDINGS: Normal visualized lung bases. There is an unremarkable bowel gas pattern. There is no demonstrated free abdominal air. The visualized liver, spleen and kidneys are grossly normal in size and morphology. Normal soft tissue structures. There are diffuse degenerative changes of the visualized lumbar spine. Total right hip arthroplasty. 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 Electronically Signed: Epifanio Zhao MD at 17:23 EDT ,
[2021-10-13] MEDS: Acetaminophen 325 MG Tablet 650 MG PO (17:23)
[2021-10-14] MEDS: APIXABAN 5 MG TABLET PO ×2 (05:45→17:16)
[2021-10-14] MEDS: Senna/Docusate Sodium 1 Tablet 2 TABLET PO ×2 (05:46→17:16)
[2021-10-14] MEDS: Potassium Chloride Oral Tablet 20 MEQ PO (09:14)
[2021-10-14 13:57] VITALS: BP 125/59; PULSE 66; RESP 16; TEMP 36.7; O2SAT 95
[2021-10-14 20:25] VITALS: O2SAT 98
[2021-10-14 22:30] VITALS: BP 128/68; PULSE 82
[2021-10-14] MEDS: Metoprolol(XL)Succ 50 MG Tablet PO (22:30)
[2021-10-15] MEDS: APIXABAN 5 MG TABLET PO ×2 (06:44→17:57)
[2021-10-15] MEDS: Senna/Docusate Sodium 1 Tablet 2 TABLET PO ×2 (06:44→17:57)
[2021-10-15] MEDS: Acetaminophen 325 MG Tablet 650 MG PO (06:46)
[2021-10-15] MEDS: Potassium Chloride Oral Tablet 20 MEQ PO (08:53)
[2021-10-15 12:53] LABS: Anion Gap 7 (5-15); BUN 18 mg/dL (7-18); BUN/Creat Ratio 19.4 RATIO (10-20); Calcium,Total 9.1 mg/dL (8.5-10.1); Chloride 106 mmol/L (98-107); Creatinine, Serum 0.93 mg/dL (0.70-1.30); EST Glomerular Filtration Rate 89 mL/min (>60); Est Glom Filt Rate - Afr Amer 107 mL/min (>60); Estimated Creatinine Clearance 117.56 ml/min; Glucose 84 mg/dL (74-106); Potassium 4.1 mmol/L (3.5-5.1); Sodium Level 139 mmol/L (136-145)
--- NOTE | 2021-10-15 13:43 | CASEMGMT ---
Social Work Plan of care meeting held in pt room with pt present. PT, OT, street worker and activities reviewed pt participation. Pt is doing well with therapy and up ad derek in room. Pt plans to return home with at time of discharge. Pt does work away from home and pt will bbe home alone. Therapy is recommending followup with outpatient PT at time of discharge. Pt states that he has an outpatient appointment scheduled with [facility] in [place] but is considering changing this to [facility] which is much closer to his home. Pt to consider outpt options and will let SW know his choice prior to d/c. NRD with insurance is 10/17 and pt is made aware continued stay is not gauranteed. Continue with treatment plan at this time and SW to continue to follow for d/c planning when appropriate. KATE Butcher
[2021-10-15 14:00] VITALS: BP 119/84; PULSE 94; RESP 18; TEMP 36.3; O2SAT 99
[2021-10-15 20:16] VITALS: BP 119/63; PULSE 90
[2021-10-15] MEDS: Metoprolol(XL)Succ 50 MG Tablet PO (20:16)
[2021-10-16] MEDS: APIXABAN 5 MG TABLET PO ×2 (05:41→17:40)
[2021-10-16] MEDS: Senna/Docusate Sodium 1 Tablet 2 TABLET PO ×2 (05:41→17:40)
[2021-10-16] MEDS: Acetaminophen 325 MG Tablet 650 MG PO ×2 (09:25→20:19)
[2021-10-16] MEDS: Ergocalciferol 1.25 MG (50, 000 UNIT) Capsule PO (09:25)
[2021-10-16] MEDS: Potassium Chloride Oral Tablet 20 MEQ PO (09:25)
--- NOTE | 2021-10-16 10:39 | NURSING ---
Pt and family updated on positive covid resident.
[2021-10-16 14:00] VITALS: BP 124/67; PULSE 88; RESP 16; TEMP 36.1; O2SAT 97
[2021-10-16 20:19] VITALS: BP 125/76; PULSE 97
[2021-10-16] MEDS: Metoprolol(XL)Succ 50 MG Tablet PO (20:19)
[2021-10-16 20:26] VITALS: PULSE 97; RESP 16; O2SAT 97
[2021-10-17] MEDS: Acetaminophen 325 MG Tablet 650 MG PO ×2 (06:12→22:16)
[2021-10-17] MEDS: Senna/Docusate Sodium 1 Tablet 2 TABLET PO ×2 (06:13→17:23)
[2021-10-17] MEDS: APIXABAN 5 MG TABLET PO ×2 (06:14→17:23)
[2021-10-17] MEDS: Potassium Chloride Oral Tablet 20 MEQ PO (07:57)
[2021-10-17 10:00] VITALS: PULSE 72; RESP 16; O2SAT 99
--- NOTE | 2021-10-17 13:50 | MDS.RN ---
Pain interview for JUAN 10/19/21 completed.
[2021-10-17 14:00] VITALS: BP 162/67; PULSE 90; RESP 18; TEMP 36.3; O2SAT 99
--- NOTE | 2021-10-17 14:27 | CASEMGMT ---
BIMS and PHQ9 interviews completed on this date for MDS assessment. KATE Butcher
--- NOTE | 2021-10-17 15:24 | CASEMGMT ---
Social Work SW met with pt and explained that insurance review is due today. If insurance denies continued stay pt will be discharged tomorrow. Determination has not yet been made by insurance. Pt stating that he has spoke to his and decided that he will discharge tomorrow regardless of what insurance decides. Pt already has a followup appointment with [facility] in [place] for outpatient PT. Pt has needed DME. Pt to transport home at 1000 on 10/18/21. Plan: Home with outpatient therapy KATE Butcher
--- NOTE | 2021-10-17 19:17 | DS.PCM_ITS ---
Providers Date of Admission: 10/12/21 Primary Care Physician: CATHY Jha Reason For Visit: RT ANTERIOR HIP SURGERY Diagnosis Discharge Diagnosis (1) Debility: Status: Acute Code(s): R53.81 - Other malaise (2) Avascular necrosis of bones of both hips: Status: Acute Code(s): M87.051 - Idiopathic aseptic necrosis of right femur; M87.052 - Idiopathic aseptic necrosis of left femur (3) Deep vein thrombosis: Status: Acute Code(s): I82.409 - Acute embolism and thrombosis of unspecified deep veins of unspecified lower extremity (4) Atrial fibrillation and flutter: Status: Acute Code(s): I48.91 - Unspecified atrial fibrillation; I48.92 - Unspecified atrial flutter (5) COVID-19: Status: Acute Code(s): U07.1 - COVID-19 (6) Depression: Status: Acute Code(s): F32.A - Depression, unspecified (7) Anxiety: Status: Acute Code(s): F41.9 - Anxiety disorder, unspecified Plan 56 year old male with below past medical history significant for avascular necrosis of bilateral hips, hospitalized for right total hip replacement 10/08/2021, admitted to TCU with debility, here for rehabilitation, strengthening, prior to discharge home with . * Debility - PT/OT. * Pain - Tylenol 650mg q6h prn pain (1-3), Motrin 400mg q6h prn pain (4-5), Oxycodone 5mg q6h prn pain (7-10). * Bowel - Senna/colace 2 tablets bid, Dulcolax 10mg daily prn. * Adult immunization - Administer pneumonia vaccine, covid19 vaccine, flu vaccine as appropriate. * DVT prophylaxis - Not necessary, on Eliquis. * Atrial fibrillation - Metoprolol succinate 50mg daily, Eliquis 5mg bid. * Vitamin D deficiency - D2 1.25mg per week. Medications at Discharge Home Medications acetaminophen 325 mg tablet (Tylenol) 650 mg PO Q6H PRN Pain (Scale Score 1-3) 10/12/21 apixaban 5 mg tablet 5 mg PO BID blood thinner 10/12/21 cholecalciferol (vitamin D3) 1,250 mcg (50,000 unit) capsule 1,250 mcg PO QWEEK bones 10/12/21 metoprolol succinate 50 mg tablet,extended release 24 hr 50 mg PO DAILY BP 10/12/21 potassium chloride 20 mEq tablet,extended release(part/cryst) (Klor-Con M) 20 meq PO DAILYCM 30 days #30 tabs 10/17/21 Hospital Course Operations total hip replacement (Right.) Procedures None Summary of Care Provided Minutes Spent on Discharge: 30 Hospital Course: 56 year old male with below past medical history significant for avascular necrosis of bilateral hips, hospitalized for right total hip replacement 022, admitted to TCU with debility, here for rehabilitation, strengthening, prior to discharge home with . Discharge home with 10/18/2021, Outpatient PT. Weight / BMI Weight Weight: 110.54 kg Body Mass Index (BMI) 27.1 ABG / Lab / Microbiology Data Result Diagrams: 10/13/21 05:25 10/15/21 12:30 Microbiology: Microbiology 10/12/21 15:50 Nasal Secretion SARS-CoV-2 Antigen (Rapid) - Final D/C Instructions Discharge Diet: No restrictions Discharge Activity: Return to Normal Activity, May Shower and Use Walker Weight Bearing Status: Weight bearing as tolerated Call your doctor if you observe: Fever of 101 or Higher, Inability to urinate, Inability to have a bowel movement, Shortness of breath, Dizziness, Fainting spells, Swelling in the ankles, Chest pain and Uncontrolled pain Additional Instructions: Discharge home with 10/18/2021, Outpatient PT. Please Follow Up With: Willie Hollingsworth MD When: As scheduled. Meaningful Use Info Meaningful Use Diagnoses (Choose all that apply): None applicable Discharge Plan Admission Admit Date/Time: 10/12/21 15:25 Primary Reason for Your Visit: Debility. Attending Provider: Steven Figueroa Chi Primary Care Provider: Dylan Murguia Instructions Additional Instructions / Restrictions: Discharge home with 10/18/2021, Outpatient PT. Discharge Orders/Prescriptions Prescriptions: New potassium chloride [Klor-Con M20] 20 mEq Tablet,Er Particles/Crystals 20 meq PO DAILYCM 30 Days Qty: 30 0RF Continued acetaminophen [Tylenol] 325 mg Tablet 650 mg PO Q6H PRN (Reason: Pain (Scale Score 1-3)) metoprolol succinate 50 mg Tablet Extended Release 24 Hr 50 mg PO DAILY cholecalciferol (vitamin D3) 1,250 mcg (50,000 unit) Capsule 1,250 mcg PO QWEEK apixaban 5 MG tablet 5 mg PO BID Discontinued oxycodone [OxyIR] 5 mg Capsule 5 mg PO Q6H PRN (Reason: Pain (Scale Score 7-10)) ibuprofen [Advil] 200 mg Tablet 400 mg PO Q6H PRN (Reason: Pain (Scale Score 4-6)) Referrals / Follow Up: Dylan Murguia PA [Primary Care Provider] - Disposition Disposition (needs filled in before D/C Order can be placed): Home, Self Care
[2021-10-17 22:16] VITALS: BP 139/56; PULSE 87
[2021-10-17] MEDS: Metoprolol(XL)Succ 50 MG Tablet PO (22:16)
[2021-10-18] MEDS: Senna/Docusate Sodium 1 Tablet 2 TABLET PO (06:59)
[2021-10-18] MEDS: Acetaminophen 325 MG Tablet 650 MG PO (06:59)
[2021-10-18] MEDS: APIXABAN 5 MG TABLET PO (07:00)
[2021-10-18] MEDS: Potassium Chloride Oral Tablet 20 MEQ PO (07:54)
[2021-10-18 07:55] VITALS: PULSE 81; RESP 16; O2SAT 99
[2021-10-18 08:01] VITALS: BP 119/77; PULSE 81; RESP 16; TEMP 36.7; O2SAT 99
--- NOTE | 2021-10-22 16:48 | MDS.RN ---
Information for the mds was obtained from review of the clinical record, interview of resident, staff, and direct observation of resident's care.
== END 2021-10-18 09:57 | disposition home or self-care (01) | DRG 560 ==
PROVIDERS: Admitting Provider Family Medicine Geriatric Medicine; PCP Physician Assistant; Visit Provider Family Medicine Geriatric Medicine
DX: Z47.1 Aftercare following joint replacement surgery (principal); I48.92 Unspecified atrial flutter; M87.051 Idiopathic aseptic necrosis of right femur; M87.052 Idiopathic aseptic necrosis of left femur; I48.91 Unspecified atrial fibrillation; E55.9 Vitamin D deficiency, unspecified; Z86.16 Personal history of COVID-19; Z79.01 Long term (current) use of anticoagulants; Z79.899 Other long term (current) drug therapy; Z86.718 Personal history of other venous thrombosis and embolism; Z96.641 Presence of right artificial hip joint
CPT/HCPCS: 36415; 74018; 80048; 85025; 87811; 97110; 97116; 97162; 97166; 97530; 97535; 97802